=== PATIENT | female | born 1965 | race Caucasian/White ===

== ENCOUNTER 2024-06-02 12:13 | Emergency (ER) | payer OTHER ==
[~2024-06-02] VITALS: Ht 157.5 cm; Wt 54.1 kg
[2024-06-02] MEDS ORDERED: PREDNISONE20 MG PO (13:22)
[2024-06-02] MEDS ORDERED: SODIUM CHLORIDE 0.9% 1,000 ML IV ONE (14:00)
[2024-06-02 14:01] LABS: BASOPHILS 0.6 % (0-2); EOSINOPHILS 1.2 % (0-6); HEMOGLOBIN 11.3 g/dL (12.0-18.0); LYMPHOCYTES 16.2 % (24-44); MCH 27.9 (27-36); MCHC 34.2 g/dl (30-36); MCV 81.7 fl (81-99); MONOCYTES 3.2 % (0-12); NEUTROPHILS 78.8 % (39-80); PLATELET COUNT 140 K/uL (140-440); RBC 4.03 M/ul (4.3-5.7); RDW 21.1 (10.5-15.0)
[2024-06-02] MEDS ORDERED: KETOROLAC TROMETHAMINE 15 MG/ML VIAL IV ONE (14:15)
[2024-06-02 14:25] LABS: ALBUMIN 2.9 g/dL (3.4-5.0); ALBUMIN/GLOBULIN RATIO 0.71 (1.1-2.4); ANION GAP 9.1 (7-21); BILIRUBIN, TOTAL 0.6 ng/dL (0.2-1.0); BUN/CREATININE RATIO 19.23 (6.0-28.6); CALCIUM 8.3 mg/dL (8.5-10.1); CREATININE, SERUM 0.78 mg/dL (0.55-1.02); POTASSIUM 3.1 mmol/L (3.5-5.1)
[2024-06-02 15:44] VITALS: BP 103/78
--- NOTE | 2024-06-03 15:51 | EKG ---
[facility] [address] [facility] [place], [place] [address] Signed Normal sinus rhythm Left axis deviation Minimal voltage criteria for LVH, may be normal variant ( R in aVL ) Inferior infarct , age undetermined Abnormal ECG No previous ECGs available Confirmed by Adam Carlos MD ([id number]) on 06/03/2024 3:50:55 PM Electronically Signed By: ADAM CARLOS MD 06/03/24 1551 PATIENT NAME: ROBINA NGUYEN Electrocardiogram DATE OF : 67 PHYSICIAN: ADAM CARLOS MD REPORT #: [id number] REPORT IS CONFIDENTIAL AND NOT TO BE RELEASED WITHOUT AUTHORIZATION
== END 2024-06-02 15:51 | disposition home or self-care (01) ==
LOC: ED 12:13
PROVIDERS: Emergency Medicine
DX: R53.1 Weakness (principal); Z88.8 Allergy status to other drugs, medicaments and biological substances; Z79.52 Long term (current) use of systemic steroids
CPT/HCPCS: 36415; 71045; 80053; 80307; 84484; 85025; 87502; 93005; 93010; 96374; 99285-25; J1885; J7030; U0002

== ENCOUNTER 2024-08-31 16:14 | Emergency (ER) | payer OTHER ==
[~2024-08-31] VITALS: Ht 157.5 cm; Wt 54.9 kg
[~2024-08-31 16:14] MED LIST: PREDNISONE20 MG PO
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
[2024-08-31] MEDS ORDERED: IBUPROFEN 400 MG TAB PO ONE (18:15)
[2024-08-31 18:38] VITALS: BP 125/84
== END 2024-08-31 18:45 | disposition home or self-care (01) ==
LOC: ED 16:14
DX: F41.9 Anxiety disorder, unspecified (principal); Z88.6 Allergy status to analgesic agent; Z79.52 Long term (current) use of systemic steroids
CPT/HCPCS: 99283; A9270

== ENCOUNTER 2025-03-04 01:33 | Emergency (ER) | payer OTHER ==
[~2025-03-04] VITALS: Ht 157.5 cm; Wt 56.6 kg
--- OUTSIDE RECORDS SUMMARY | 2025-03-04 01:40 | XMS ---
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 E.D. VISIT COUNT (12 MO.) 3 JEYSON Zamorano 2 [place] [address] Bran Tani TOTAL 7 NOTE: Visits indicate total known visits. ED/UCC VISIT TRACKING (12 MO.) 03/04/2025 01:33 JEYSON Wade [place] TYPE: Emergency COMPLAINT: - KNEE PAIN 12/27[facility]2024 10:[facility] DIAGNOSES: - Anemia, unspecified - Embolism and thrombosis of renal vein - Intussusception - Sepsis, unspecified organism - Septic pulmonary embolism without acute cor pulmonale - Severe sepsis without septic shock - Thrombocytopenia, unspecified - Tubulo-interstitial nephritis, not specified as acute or chronic - GI Bleeding 12/27/2024 03:35 [facility] TYPE: Emergency COMPLAINT: - Body Pain DIAGNOSES: - Body Pain 08/31/2024 16:15 JEYSON Cowan TYPE: Emergency COMPLAINT: - PANIC ATTACH DIAGNOSES: - Allergy status to analgesic agent - Anxiety disorder, unspecified - FDC (current) use of systemic steroids 08/22/2024 23:05 Bran [facility] [place] TYPE: Emergency DIAGNOSES: - Contusion of scalp, initial encounter - Unspecified dementia, unspecified severity, without behavioral disturbance, psychotic disturbance, mood disturbance, and anxiety 06/02/2024 12:14 JEYSON [facility] [place] TYPE: Emergency COMPLAINT: - WEAKNESS DIAGNOSES: - Allergy status to other drugs, medicaments and biological substances - Cough, unspecified - terminal clerk (current) use of systemic steroids - Other chest pain - Weakness 04/22/2024 15:45 [facility] [place] TYPE: Emergency COMPLAINT: - stroke DIAGNOSES: - stroke INPATIENT VISIT TRACKING (12 MO.) 12/27/2024 10:46 [facility] DIAGNOSES: - Anemia, unspecified - Bacteremia - Decreased white blood cell count, unspecified - Embolism and thrombosis of renal vein - Encounter for adjustment and management of vascular access device - Encounter for screening, unspecified - Gastrointestinal hemorrhage, unspecified - Generalized anxiety disorder - History of falling - Intussusception - Methicillin susceptible Staphylococcus aureus infection as the cause of diseases classified elsewhere - Other stimulant abuse, uncomplicated - Panic disorder [episodic paroxysmal anxiety] - Polyarthritis, unspecified - Pyogenic arthritis, unspecified - Sepsis due to Methicillin susceptible Staphylococcus aureus - Sepsis, unspecified organism - Septic arterial embolism - Septic pulmonary embolism without acute cor pulmonale - Severe sepsis without septic shock - Staphylococcal arthritis, right knee - Thrombocytopenia, unspecified - Tubulo-interstitial nephritis, not specified as acute or chronic - Unspecified severe protein-calorie malnutrition [email or web address]
[2025-03-04] MEDS ORDERED: LEVOTHYROXINE88 MCG PO (01:46)
[2025-03-04] MEDS ORDERED: HYDROXYZINE PAM25 MG PO (01:46)
[2025-03-04] MEDS ORDERED: PANTOPRAZOLE SO40 MG PO (01:47)
[2025-03-04] MEDS ORDERED: METHOCARBAMOL750 MG PO (01:47)
[2025-03-04] MEDS ORDERED: LIDOCAINE1 EACH TD (01:47)
[2025-03-04] MEDS ORDERED: VENLAFAXINE H37.5 M1 PO (01:48)
[2025-03-04] MEDS ORDERED: QUETIAPINE FUMA50 MG PO (01:48)
[2025-03-04] MEDS ORDERED: PEG3350510 GM PO (01:48)
[2025-03-04] MEDS ORDERED: OXYCODONE HCL 5 MG TAB PO ONE (02:00)
[2025-03-04] MEDS ORDERED: PIPERACILLIN/TAZOBACTAM 4.5 GM in SODIUM CHLORIDE 0.9% 100 ML IV ONE (02:00)
[2025-03-04 02:02] LABS: BASOPHILS 0.3 % (0.1-1.2); EOSINOPHILS 1.6 % (0.7-5.8); LYMPHOCYTES 17.2 % (19.3-51.7); MCH 26.2 PG (25.6-32.2); MCHC 32.2 g/dL (32.2-35.5); MCV 81.6 fL (79.4-94.8); MONOCYTES 6.3 % (4.7-12.5); NEUTROPHILS 74.3 % (34.0-71.1); RBC 3.81 M/uL (3.93-5.22)
[2025-03-04 02:06] LABS: INR 1.15 (0.80-1.30); PROTIME 14.3 Sec (11.2-14.2)
[2025-03-04 02:11] LABS: ALT (SGPT) 7.0 U/L (14-59); AST (SGOT) 13.0 U/L (15-37); GLOMERULAR FILTRATION RATE,EST 75.0 mL/min (>60); PROTEIN, TOTAL 8.1 g/dL (6.4-8.2); UREA NITROGEN 13.0 mg/dL (7-18)
[2025-03-04 02:15] LABS: SMEAR REVIEW BLOOD SEE COMMENTS
[2025-03-04 02:31] LABS: BLOOD/HGB, URINE SMALL (Negative); KETONE, URINE NEGATIVE (Negative); LEUK ESTERASE, URINE SMALL (negative); NITRITE, URINE POSITIVE (negative)
[2025-03-04 02:33] LABS: LACTIC ACID, BLOOD 1.1 mmol/L (0.4-2.0)
[2025-03-04 02:42] LABS: BACTERIA, URINE 4+ /hpf (negative); CASTS, URINE NONE SEEN \\lpf; CRYSTALS, URINE NONE SEEN (0-1+); EPITHELIAL CELLS, URINE SQUAMOUS 1+ /lpf (0-1+); REFLEX CULTURE, URINE Yes (No)
[2025-03-04 02:55] LABS: AMPHETAMINES, URINE NEGATIVE (NEGATIVE); BARBITURATES, URINE NEGATIVE (NEGATIVE); BENZODIAZEPINE, URINE NEGATIVE (NEGATIVE); CANNABINOID, URINE NEGATIVE (NEGATIVE); COCAINE, URINE NEGATIVE (NEGATIVE); ECSTASY, URINE NEGATIVE (NEGATIVE); METHADONE, URINE NEGATIVE (NEGATIVE); OPIATES, URINE NEGATIVE (NEGATIVE); OXYCODONE, URINE NEGATIVE (NEGATIVE); PHENCYCLIDINE, URINE NEGATIVE (NEGATIVE)
[2025-03-04 03:13] LABS: ABO O; ANTIBODY SCREEN NEGATIVE; RH POSITIVE
[2025-03-04] MEDS ORDERED: CEPHALEXIN500 M1 PO (03:36)
[2025-03-04] MEDS ORDERED: OXYBUTYNIN CHLOR5 MG PO (03:40)
[2025-03-04] MEDS ORDERED: OXYCODONE HCL5 M1 PO (03:42)
[2025-03-04] MEDS ORDERED: CEPHALEXIN MONOHYDRATE 500 MG HOME.PACK PO ONE (03:45)
[2025-03-04 04:12] LABS: FENTANYL, URINE NEGATIVE (NEGATIVE)
[2025-03-04 04:13] VITALS: BP 132/80
== END 2025-03-04 04:16 | disposition home or self-care (01) ==
LOC: ED 01:33
PROVIDERS: Internal Medicine
DX: L03.115 Cellulitis of right lower limb (principal); N39.0 Urinary tract infection, site not specified; M25.531 Pain in right wrist; M25.532 Pain in left wrist; Z88.1 Allergy status to other antibiotic agents; Z79.890 Hormone replacement therapy; Z79.899 Other long term (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
CPT/HCPCS: 36415; 51701; 73560; 80053; 80307; 81001; 83605; 84550; 85025; 85060; 85610; 85651; 85730; 86140; 86850; 86900; 86901; 87040; 87077; 87088; 87186; 99283-25; A9270; G0480; J0696

== ENCOUNTER 2025-03-10 20:53 | Emergency (ER) | payer OTHER ==
[~2025-03-10] VITALS: Ht 157.5 cm; Wt 58.0 kg
[~2025-03-10 20:53] MED LIST changes: +CEPHALEXIN500 M1 PO; +HYDROXYZINE PAM25 MG PO; +LEVOTHYROXINE88 MCG PO; +LIDOCAINE1 EACH TD; +METHOCARBAMOL750 MG PO; +OXYBUTYNIN CHLOR5 MG PO; +OXYCODONE HCL5 M1 PO; +PANTOPRAZOLE SO40 MG PO; +PEG3350510 GM PO; +QUETIAPINE FUMA50 MG PO; +VENLAFAXINE H37.5 M1 PO
--- OUTSIDE RECORDS SUMMARY | 2025-03-10 20:59 | XMS ---
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 - 2 Visits in 30 Days - [facility] - 3 Facilities in 90 Days CARE PROVIDERS MARKUS FONTANA Community Health Worker 11/25/2023-Current PHONE: [phone] JOSÉ CAMACHO Physician Assistant Georgina Schilling PHONE: Unknown [facility]/Center: [facility] WORKERS CLINIC [facility] ([facility]) <UNAVAIL> PHONE: [phone] Sg has no Care Guidelines for this patient. E.D. VISIT COUNT (12 MO.) 4 JEYSON Zamorano 2 [place] [address] Bran Tani TOTAL 8 NOTE: Visits indicate total known visits. ED/UCC VISIT TRACKING (12 MO.) 03/10/2025 20:53 JEYSON Wade [place] TYPE: Emergency COMPLAINT: - CHEST PAIN 03/04/2025 01:33 JEYSON Wade [place] TYPE: Emergency COMPLAINT: - KNEE PAIN DIAGNOSES: - Allergy status to other antibiotic agents - Cellulitis of right lower limb - Hormone replacement therapy - Other half-way (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 - Pain in left wrist - Pain in right knee - Pain in right wrist - Urinary tract infection, site not specified 12/27/2024 10:46 [facility] TYPE: Emergency DIAGNOSES: - Anemia, unspecified - Embolism and thrombosis of renal vein - Intussusception - Sepsis, unspecified organism - Septic pulmonary embolism without acute cor pulmonale - Severe sepsis without septic shock - Thrombocytopenia, unspecified - Tubulo-interstitial nephritis, not specified as acute or chronic - GI Bleeding 12/27/2024 03:35 [facility] [place] TYPE: Emergency COMPLAINT: - Body Pain DIAGNOSES: - Body Pain 08/31/2024 16:15 JEYSON Wade [place] TYPE: Emergency COMPLAINT: - PANIC ATTACH DIAGNOSES: - Allergy status to analgesic agent - Anxiety disorder, unspecified - FPC (current) use of systemic steroids 08/22/2024 23:05 [facility] TYPE: Emergency DIAGNOSES: - Contusion of scalp, initial encounter - Unspecified dementia, unspecified severity, without behavioral disturbance, psychotic disturbance, mood disturbance, and anxiety 06/02/2024 12:14 JEYSON [facility]an TYPE: Emergency COMPLAINT: - WEAKNESS DIAGNOSES: - Allergy status to other drugs, medicaments and biological substances - Cough, unspecified - FPC (current) use of systemic steroids - Other chest pain - Weakness 04/22/2024 15:45 [facility] [place] TYPE: Emergency COMPLAINT: - stroke DIAGNOSES: - stroke INPATIENT VISIT TRACKING (12 MO.) 12/27/2024 10:46 [facility] TYPE: Internal Medicine DIAGNOSES: - Anemia, unspecified [...] or chronic - Unspecified severe protein-calorie malnutrition [email or web address]
[2025-03-10 21:12] LABS: BASOPHILS 0.4 % (0.1-1.2); EOSINOPHILS 3.3 % (0.7-5.8); LYMPHOCYTES 22.2 % (19.3-51.7); MCH 25.8 PG (25.6-32.2); MCHC 32.0 g/dL (32.2-35.5); MCV 80.9 fL (79.4-94.8); MONOCYTES 9.6 % (4.7-12.5); NEUTROPHILS 64.1 % (34.0-71.1); RBC 3.29 M/uL (3.93-5.22)
[2025-03-10 21:26] LABS: INR 1.2 (0.80-1.30); PROTIME 14.4 Sec (11.2-14.2); SMEAR REVIEW BLOOD SEE COMMENTS
[2025-03-10 21:31] LABS: ALT (SGPT) 6.0 U/L (14-59); AST (SGOT) 14.0 U/L (15-37); GLOMERULAR FILTRATION RATE,EST 82.0 mL/min (>60); PROTEIN, TOTAL 7.5 g/dL (6.4-8.2); UREA NITROGEN 14.0 mg/dL (7-18)
[2025-03-10 22:32] LABS: BLOOD/HGB, URINE NEGATIVE (Negative); KETONE, URINE NEGATIVE (Negative); LEUK ESTERASE, URINE NEGATIVE (negative); NITRITE, URINE NEGATIVE (negative)
[2025-03-10 22:37] LABS: EPITHELIAL CELLS, URINE SQUAMOUS 1+ /lpf (0-1+)
[2025-03-10 22:38] LABS: BACTERIA, URINE RARE /hpf (negative); CASTS, URINE HYALINE 1+ \\lpf; CRYSTALS, URINE NONE SEEN (0-1+); REFLEX CULTURE, URINE No (No)
[2025-03-10 22:47] LABS: AMPHETAMINES, URINE NEGATIVE (NEGATIVE); BARBITURATES, URINE NEGATIVE (NEGATIVE); BENZODIAZEPINE, URINE NEGATIVE (NEGATIVE); CANNABINOID, URINE NEGATIVE (NEGATIVE); COCAINE, URINE NEGATIVE (NEGATIVE); ECSTASY, URINE NEGATIVE (NEGATIVE); FENTANYL, URINE NEGATIVE (NEGATIVE); METHADONE, URINE NEGATIVE (NEGATIVE); OPIATES, URINE POSITIVE (NEGATIVE); OXYCODONE, URINE POSITIVE (NEGATIVE); PHENCYCLIDINE, URINE NEGATIVE (NEGATIVE)
[2025-03-10] MEDS ORDERED: CYCLOBENZAPRINE10 MG PO (23:00)
[2025-03-10] MEDS ORDERED: AZITHROMYCIN 250 MG HOME.PACK PO ONE (23:00)
[2025-03-10] MEDS ORDERED: ALBUTEROL SULFATE 8 GM HOME.PACK INH ONE (23:00)
[2025-03-10] MEDS ORDERED: CYCLOBENZAPRINE HCL 10 MG HOME.PACK PO ONE (23:00)
[2025-03-10 23:10] VITALS: BP 120/74
--- NOTE | 2025-03-11 11:38 | EKG ---
[facility] [address] [facility] [place] [address] Signed Normal sinus rhythm Normal ECG When compared with ECG of 02-Jun-2024 14:15:08 Left axis deviation is no longer present Confirmed by Adam Carlos MD ([id number]) on 03/11/2025 11:38:29 AM Electronically Signed By: ADAM CARLOS MD 03/11/25 1138 PATIENT NAME: ROBINA NGUYEN Electrocardiogram DATE OF : 67 PHYSICIAN: ADAM CARLOS MD REPORT #: [id number] REPORT IS CONFIDENTIAL AND NOT TO BE RELEASED WITHOUT AUTHORIZATION
== END 2025-03-10 23:39 | disposition home or self-care (01) ==
LOC: ED 20:53
PROVIDERS: Family Medicine
DX: J18.9 Pneumonia, unspecified organism (principal); Z88.1 Allergy status to other antibiotic agents; Z79.2 Long term (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; Z79.890 Hormone replacement therapy; Z79.899 Other long term (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
CPT/HCPCS: 36415; 51701; 71045; 71260; 80053; 80307; 81001; 83735; 84484; 85025; 85060; 85379; 85610; 93005; 93010; 94640; 94664; 99285-25; Q9967

== ENCOUNTER 2025-03-11 20:18 | Emergency (ER) | payer OTHER ==
[~2025-03-11] VITALS: Ht 157.5 cm; Wt 58.0 kg
[~2025-03-11 20:18] MED LIST changes: +CYCLOBENZAPRINE10 MG PO
--- OUTSIDE RECORDS SUMMARY | 2025-03-11 20:25 | XMS ---
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 E.D. VISIT COUNT (12 MO.) 5 JEYSON Zamorano 2 [place] [address] Bran Tani TOTAL 9 NOTE: Visits indicate total known visits. ED/UCC VISIT TRACKING (12 MO.) 03/11/2025 20:18 JEYSON Wade [place] TYPE: Emergency COMPLAINT: - ANXIETY 03/10/2025 20:53 JEYSON Wade [place] TYPE: Emergency COMPLAINT: - CHEST PAIN 03/04/2025 01:33 JEYSON Wade [place] TYPE: Emergency COMPLAINT: - KNEE PAIN DIAGNOSES: - Allergy status to other antibiotic agents - Cellulitis of right lower limb - Hormone replacement therapy - Other care home (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 - Pain in left wrist - Pain in right knee - Pain in right wrist - Urinary tract infection, site not specified 12/27/2024 10:46 [facility] TYPE: Emergency DIAGNOSES: - Anemia, unspecified - Embolism and thrombosis of renal vein - Intussusception - Sepsis, unspecified organism - Septic pulmonary embolism without acute cor pulmonale - Severe sepsis without septic shock - Thrombocytopenia, unspecified - Tubulo-interstitial nephritis, not specified as acute or chronic - GI Bleeding 12/27/2024 03:35 [facility] [place] TYPE: Emergency COMPLAINT: - Body Pain DIAGNOSES: - Body Pain 08/31/2024 16:15 JEYSON Cowan TYPE: Emergency COMPLAINT: - PANIC ATTACH DIAGNOSES: - Allergy status to analgesic agent - Anxiety disorder, unspecified - intermission coordinator (current) use of systemic steroids 08/22/2024 23:05 [facility] TYPE: Emergency DIAGNOSES: - Contusion of scalp, initial encounter - Unspecified dementia, unspecified severity, without behavioral disturbance, psychotic disturbance, mood disturbance, and anxiety 06/02/2024 12:14 JEYSON [facility] TYPE: Emergency COMPLAINT: - WEAKNESS DIAGNOSES: - Allergy status to other drugs, medicaments and biological substances - Cough, unspecified - intermission coordinator (current) use of systemic steroids - Other chest pain - Weakness 04/22/2024 15:45 [facility] [place] TYPE: Emergency COMPLAINT: - stroke DIAGNOSES: - stroke INPATIENT VISIT TRACKING (12 MO.) 12/27/2024 10:46 [facility] TYPE: Internal Medicine DIAGNOSES: - Anemia, unspecified [...] or chronic - Unspecified severe protein-calorie malnutrition [email or web address]
[2025-03-11] MEDS ORDERED: LORazepam 2 MG/ML VIAL IV ONE (20:45)
[2025-03-11 21:40] LABS: BASOPHILS 0.3 % (0.1-1.2); EOSINOPHILS 1.1 % (0.7-5.8); LYMPHOCYTES 15.2 % (19.3-51.7); MCH 26.1 PG (25.6-32.2); MCHC 32.6 g/dL (32.2-35.5); MCV 79.9 fL (79.4-94.8); MONOCYTES 8.3 % (4.7-12.5); NEUTROPHILS 74.8 % (34.0-71.1); RBC 3.49 M/uL (3.93-5.22)
[2025-03-11 21:54] LABS: SMEAR REVIEW BLOOD SEE COMMENTS
[2025-03-11 21:56] LABS: ALT (SGPT) 6.0 U/L (14-59); AST (SGOT) 16.0 U/L (15-37); GLOMERULAR FILTRATION RATE,EST 82.0 mL/min (>60); PROTEIN, TOTAL 7.5 g/dL (6.4-8.2); UREA NITROGEN 13.0 mg/dL (7-18)
[2025-03-11] MEDS ORDERED: POTASSIUM CHLORIDE 10 MEQ TABCR PO ONE (22:30)
[2025-03-11 22:49] VITALS: BP 124/87
--- NOTE | 2025-03-14 07:58 | EKG ---
[facility] [address] [facility] [place], [place] [address] Signed Normal sinus rhythm Minimal voltage criteria for LVH, may be normal variant ( R in aVL ) Borderline ECG When compared with ECG of 10-MAR-2025 20:51, No significant change was found Confirmed by Adam Carlos MD ([id number]) on 03/14/2025 7:58:19 AM Electronically Signed By: ADAM CARLOS MD 03/14/25 0758 PATIENT NAME: ELDA NGUYENINA Electrocardiogram DATE OF : 67 PHYSICIAN: ADAM CARLOS MD REPORT #: [id number] REPORT IS CONFIDENTIAL AND NOT TO BE RELEASED WITHOUT AUTHORIZATION
== END 2025-03-11 23:01 | disposition home or self-care (01) ==
LOC: ED 20:18
PROVIDERS: Family Medicine
DX: F41.9 Anxiety disorder, unspecified (principal); D69.6 Thrombocytopenia, unspecified; Z63.8 Other specified problems related to primary support group; Z79.899 Other long term (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; Z88.5 Allergy status to narcotic agent
CPT/HCPCS: 36415; 71045; 80053; 83735; 84484; 85025; 85060; 93005; 93010; 96374; 99284-25; A9270; J2060

== ENCOUNTER 2025-03-28 00:45 | Emergency (ER) | payer OTHER ==
[~2025-03-28] VITALS: Ht 157.5 cm; Wt 52.5 kg
--- OUTSIDE RECORDS SUMMARY | 2025-03-28 00:47 | XMS ---
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 Qualified [facility] Current WORKERS CLINIC [facility] ([facility]) <UNAVAIL> PHONE: [phone] Sg has no Care Guidelines for this patient. E.D. VISIT COUNT (12 MO.) 6 JEYSON Zamorano 2 [place] [address] Bran Tani TOTAL 10 NOTE: Visits indicate total known visits. ED/UCC VISIT TRACKING (12 MO.) 03/28/2025 00:45 JEYSON Wade [place] TYPE: Emergency COMPLAINT: - WEAKNESS 03/11/2025 20:18 JEYSON Wade [place] TYPE: Emergency COMPLAINT: - ANXIETY DIAGNOSES: - Allergy status to narcotic agent - Anxiety disorder, unspecified - Chest pain, unspecified - Other retirement (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 - Other specified problems related to primary support group - Thrombocytopenia, unspecified 03/10/2025 20:53 JEYSON Wade [place] TYPE: Emergency COMPLAINT: - CHEST PAIN DIAGNOSES: - Allergy status to other antibiotic agents - Chest pain, unspecified - Hormone replacement therapy - computer terminal operator (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 - Other termite inspector (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 - Pneumonia, unspecified organism 03/04/2025 01:33 JEYSON Wade [place] TYPE: Emergency COMPLAINT: - KNEE PAIN DIAGNOSES: - Allergy status to other antibiotic agents - Cellulitis of right lower limb - Hormone replacement therapy - Other retirement (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 - Pain in left wrist - Pain in right knee - Pain in right wrist - Urinary tract infection, site not specified 12/27/2024 10:46 [facility] TYPE: Emergency DIAGNOSES: - Anemia, unspecified - Embolism and thrombosis of renal vein - Intussusception - Sepsis, unspecified organism - Septic pulmonary embolism without acute cor pulmonale - Severe sepsis without septic shock - Thrombocytopenia, unspecified - Tubulo-interstitial nephritis, not specified as acute or chronic - GI Bleeding 12/27/2024 03:35 [facility] TYPE: Emergency COMPLAINT: - Body Pain DIAGNOSES: - Body Pain 08/31/2024 16:15 JEYSON Cowan TYPE: Emergency COMPLAINT: - PANIC ATTACH DIAGNOSES: - Allergy status to analgesic agent - Anxiety disorder, unspecified - computer terminal operator (current) use of systemic steroids 08/22/2024 23:05 [facility] TYPE: Emergency DIAGNOSES: - Contusion of scalp, initial encounter - Unspecified dementia, unspecified severity, without behavioral disturbance, psychotic disturbance, mood disturbance, and anxiety 06/02/2024 12:14 JEYSON Wade [place] TYPE: Emergency COMPLAINT: - WEAKNESS DIAGNOSES: - Allergy status to other drugs, medicaments and biological substances - Cough, unspecified - computer terminal operator (current) use of systemic steroids - Other chest pain - Weakness 04/22/2024 15:45 [facility] [place] TYPE: Emergency COMPLAINT: - stroke DIAGNOSES: - stroke INPATIENT VISIT TRACKING (12 MO.) 12/27/2024 10:46 [facility] TYPE: Internal Medicine DIAGNOSES: - [...] or chronic - Unspecified severe protein-calorie malnutrition [email or web address]
[2025-03-28] MEDS ORDERED: SODIUM CHLORIDE 0.9% 1,000 ML IV ONE (01:15)
[2025-03-28] MEDS ORDERED: IBUPROFEN 600 MG TAB PO ONE (01:15)
[2025-03-28 01:18] LABS: BASOPHILS 0.4 % (0.1-1.2); EOSINOPHILS 2.3 % (0.7-5.8); LYMPHOCYTES 21.5 % (19.3-51.7); MCH 25.1 PG (25.6-32.2); MCHC 32.3 g/dL (32.2-35.5); MCV 77.6 fL (79.4-94.8); MONOCYTES 7.3 % (4.7-12.5); NEUTROPHILS 68.1 % (34.0-71.1); RBC 4.19 M/uL (3.93-5.22)
[2025-03-28 01:22] LABS: INR 1.08 (0.80-1.30); PROTIME 13.6 Sec (11.2-14.2)
[2025-03-28 01:26] LABS: ALT (SGPT) 11.0 U/L (14-59); AST (SGOT) 18.0 U/L (15-37); GLOMERULAR FILTRATION RATE,EST 101.0 mL/min (>60); PROTEIN, TOTAL 8.6 g/dL (6.4-8.2); UREA NITROGEN 14.0 mg/dL (7-18)
[2025-03-28 01:39] LABS: LACTIC ACID, BLOOD 0.9 mmol/L (0.4-2.0)
[2025-03-28 02:05] LABS: INFLUENZA B NAA NEGATIVE (NEGATIVE); RESPIRATORY SYNCYTIAL VIR NAA NEGATIVE (NEGATIVE)
[2025-03-28] MEDS ORDERED: SODIUM CHLORIDE 0.9% 1,000 ML IV PRN (02:45)
[2025-03-28 02:48] LABS: BLOOD/HGB, URINE NEGATIVE (Negative); KETONE, URINE NEGATIVE (Negative); LEUK ESTERASE, URINE NEGATIVE (negative); NITRITE, URINE NEGATIVE (negative)
[2025-03-28 03:03] LABS: AMPHETAMINES, URINE NEGATIVE (NEGATIVE); BARBITURATES, URINE NEGATIVE (NEGATIVE); BENZODIAZEPINE, URINE NEGATIVE (NEGATIVE); CANNABINOID, URINE NEGATIVE (NEGATIVE); COCAINE, URINE NEGATIVE (NEGATIVE); ECSTASY, URINE NEGATIVE (NEGATIVE); FENTANYL, URINE NEGATIVE (NEGATIVE); METHADONE, URINE NEGATIVE (NEGATIVE); OPIATES, URINE NEGATIVE (NEGATIVE); OXYCODONE, URINE POSITIVE (NEGATIVE); PHENCYCLIDINE, URINE NEGATIVE (NEGATIVE)
[2025-03-28] MEDS ORDERED: ALBUTEROL SULFATE 8 GM HOME.PACK INH ONE (04:15)
[2025-03-28] MEDS ORDERED: AZITHROMYCIN 250 MG HOME.PACK PO ONE (04:15)
[2025-03-28] MEDS ORDERED: methylPREDNISolone 4 MG HOME.PACK PO ONE (04:15)
[2025-03-28 04:42] VITALS: BP 109/75
--- NOTE | 2025-03-28 15:59 | EKG ---
[facility] [address] [facility] [place] [address] Signed Normal sinus rhythm Moderate voltage criteria for LVH, may be normal variant ( R in aVL , [place] product ) Inferior infarct , age undetermined Abnormal ECG When compared with ECG of 11-MAR-2025 21:01, No significant change was found Confirmed by Bowen Carlos MD ([id number]) on 03/28/2025 3:59:14 PM Electronically Signed By: BOWEN CARLOS MD 03/28/25 1559 PATIENT NAME: PATRICKROBINA Electrocardiogram DATE OF : 67 PHYSICIAN: BOWEN CARLOS MD REPORT #: [id number] REPORT IS CONFIDENTIAL AND NOT TO BE RELEASED WITHOUT AUTHORIZATION
== END 2025-03-28 04:55 | disposition home or self-care (01) ==
LOC: ED 00:45
PROVIDERS: Family Medicine
DX: J18.9 Pneumonia, unspecified organism (principal); Z88.8 Allergy status to other drugs, medicaments and biological substances; Z79.2 Long term (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
CPT/HCPCS: 36415; 51702; 70450; 71045; 80053; 80307; 81003; 83605; 85025; 85610; 85730; 87502; 93005; 93010; 94640; 94664; 96361; 96365; 96375; 96376; 99285-25; A9270; J0696; J2405; J7030; U0002

== ENCOUNTER 2025-04-05 19:15 | Emergency (ER) | payer OTHER ==
[~2025-04-05] VITALS: Ht 157.5 cm; Wt 53.5 kg
--- OUTSIDE RECORDS SUMMARY | 2025-04-05 19:22 | XMS ---
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 E.D. VISIT COUNT (12 MO.) 7 JEYSON Zamorano 2 [place] [address] Bran Tani TOTAL 11 NOTE: Visits indicate total known visits. 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 plant operator (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 - Other specified problems related to primary support group - Thrombocytopenia, unspecified 03/10/2025 20:53 [facility] [place] TYPE: Emergency COMPLAINT: - CHEST PAIN DIAGNOSES: - Allergy status to other antibiotic agents - Chest pain, unspecified - Hormone replacement therapy - roasterman (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 - Other petroleum terminal plant operator (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 - Pneumonia, unspecified organism 03/04/2025 01:33 JEYSON Wade [place] TYPE: Emergency COMPLAINT: - KNEE PAIN DIAGNOSES: - Allergy status to other antibiotic agents - Cellulitis of right lower limb - Hormone replacement therapy - Other fpc (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 - Pain in left wrist - Pain in right knee - Pain in right wrist - Urinary tract infection, site not specified 12/27/2024 10:46 [facility] TYPE: Emergency DIAGNOSES: - Anemia, unspecified - Embolism and thrombosis of renal vein - Intussusception - Sepsis, unspecified organism - Septic pulmonary embolism without acute cor pulmonale - Severe sepsis without septic shock - Thrombocytopenia, unspecified - Tubulo-interstitial nephritis, not specified as acute or chronic - GI Bleeding 12/27/2024 03:35 [facility] [place] TYPE: Emergency COMPLAINT: - Body Pain DIAGNOSES: - Body Pain 08/31/2024 16:15 JEYSON [facility] [place] TYPE: Emergency COMPLAINT: - PANIC ATTACH DIAGNOSES: - Allergy status to analgesic agent - Anxiety disorder, unspecified - long-term (current) use of systemic steroids 08/22/2024 23:05 [facility] TYPE: Emergency DIAGNOSES: - Contusion of scalp, initial encounter - Unspecified dementia, unspecified severity, without behavioral disturbance, psychotic disturbance, mood disturbance, and anxiety 06/02/2024 12:14 JEYSON [facility] TYPE: Emergency COMPLAINT: - WEAKNESS DIAGNOSES: - Allergy status to other drugs, medicaments and biological substances - Cough, unspecified - long-term (current) use of systemic steroids - Other chest pain - Weakness 04/22/2024 15:45 [facility] [place] TYPE: Emergency COMPLAINT: - stroke DIAGNOSES: - stroke INPATIENT VISIT TRACKING (12 MO.) [facility]2024 10:[facility] DIAGNOSES: - Anemia, [...] or chronic - Unspecified severe protein-calorie malnutrition [email or web address]
[2025-04-05] MEDS ORDERED: LIDOCAINE & ANTACID 35 ML BTL PO ONE (20:00)
[2025-04-05] MEDS ORDERED: FAMOTIDINE 20 MG/ 2 ML VIAL IV ONE (20:00)
[2025-04-05] MEDS ORDERED: ASPIRIN 81 MG CHEW PO ONE (20:00)
[2025-04-05 20:27] LABS: BASOPHILS 0.3 % (0.1-1.2); EOSINOPHILS 1.7 % (0.7-5.8); LYMPHOCYTES 14.1 % (19.3-51.7); MCH 25.0 PG (25.6-32.2); MCHC 32.0 g/dL (32.2-35.5); MCV 78.1 fL (79.4-94.8); MONOCYTES 6.9 % (4.7-12.5); NEUTROPHILS 76.7 % (34.0-71.1); RBC 3.88 M/uL (3.93-5.22)
[2025-04-05 20:47] LABS: ALT (SGPT) 17.0 U/L (14-59); AST (SGOT) 19.0 U/L (15-37); GLOMERULAR FILTRATION RATE,EST 89.0 mL/min (>60); PROTEIN, TOTAL 7.2 g/dL (6.4-8.2); UREA NITROGEN 16.0 mg/dL (7-18)
[2025-04-05] MEDS ORDERED: PROTONIX40 MG PO (21:03)
[2025-04-05] MEDS ORDERED: CARAFATE1 GM PO (21:03)
[2025-04-05 21:20] VITALS: BP 129/85
--- NOTE | 2025-04-07 21:36 | EKG ---
[facility] [address] [facility] [place] [address] Signed Normal sinus rhythm Possible Left atrial enlargement Nonspecific T wave abnormality Abnormal ECG When compared with ECG of 28-MAR-2025 01:13, Criteria for Inferior infarct are no longer present Nonspecific T wave abnormality now evident in Lateral leads Confirmed by Swapnil Chaudhry MD () on 04/07/2025 9:36:38 PM Electronically Signed By: SWAPNIL CHAUDHRY MD 04/07/25 2136 PATIENT NAME: ROBINA NGUYEN Electrocardiogram DATE OF : 67 PHYSICIAN: SWAPNIL CHAUDHRY MD REPORT #: [id number] REPORT IS CONFIDENTIAL AND NOT TO BE RELEASED WITHOUT AUTHORIZATION
== END 2025-04-05 21:20 | disposition home or self-care (01) ==
LOC: ED 19:15
PROVIDERS: Internal Medicine
DX: K21.9 Gastro-esophageal reflux disease without esophagitis (principal); D61.818 Other pancytopenia; Z88.6 Allergy status to analgesic agent; Z88.8 Allergy status to other drugs, medicaments and biological substances; Z79.890 Hormone replacement therapy; Z79.899 Other long term (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
CPT/HCPCS: 36415; 71045; 80053; 80307; 83690; 83735; 83880; 84484; 85025; 85379; 93005; 93010; 96374; 99285-25; A9270

== ENCOUNTER 2025-04-23 00:56 | Emergency (ER) | payer OTHER ==
[~2025-04-23] VITALS: Ht 157.5 cm; Wt 51.3 kg
[~2025-04-23 00:56] MED LIST changes: +CARAFATE1 GM PO; +PROTONIX40 MG PO
--- OUTSIDE RECORDS SUMMARY | 2025-04-23 01:03 | XMS ---
PreManage Notification: ROBINA NGUYEN Security Photography Spotter Events No recent Security Events currently on file CRITERIA MET - 6 ED Visits in 6 Months - [facility] - 2 Visits in 30 Days CARE PROVIDERS MARKUS FONTANA Community Health Worker 11/25/2023-Current PHONE: [phone] JOSÉ CAMACHO Physician Assistant Georgina Schilling PHONE: Unknown [facility]/Center: [facility] Qualified [place] Current WORKERS CLINIC [facility] ([facility]) <UNAVAIL> PHONE: [phone] Sg has no Care Guidelines for this patient. E.D. VISIT COUNT (12 MO.) 8 JEYSON Logan [place] [address] Bran Tani TOTAL 11 NOTE: Visits indicate total known visits. ED/UCC VISIT TRACKING (12 MO.) 04/23/2025 00:56 [place] TYPE: Emergency COMPLAINT: - POSS FEVER 04/05/2025 19:15 JEYSON CazaresNuangola HPushpa [facility] [place] TYPE: Emergency COMPLAINT: - CHEST PAIN DIAGNOSES: - Allergy status to analgesic agent - Allergy status to other drugs, medicaments and biological substances - Chest pain, unspecified - Gastro-esophageal reflux disease without esophagitis - Hormone replacement therapy - Other penitentiary (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 - Other pancytopenia 03/28/2025 00:45 JEYSON [place] TYPE: Emergency COMPLAINT: - WEAKNESS DIAGNOSES: - Allergy status to other drugs, medicaments and biological substances - [facility] (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 - Pneumonia, unspecified organism - Weakness 03/11/2025 20:18 JEYSON Jonkaitlynn LemusPushpa [facility]re[place] TYPE: Emergency COMPLAINT: - ANXIETY DIAGNOSES: - Allergy status to narcotic agent - Anxiety disorder, unspecified - Chest pain, unspecified - Other hvac service tech (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 - Other specified problems related to primary support group - Thrombocytopenia, unspecified 03/10/2025 20:53 JEYS[place] TYPE: Emergency COMPLAINT: - CHEST PAIN DIAGNOSES: - Allergy status to other antibiotic agents - Chest pain, unspecified - Hormone replacement therapy - [facility] (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 - Other hvac service tech (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 - Pneumonia, unspecified organism 03/04/2025 01:33 JE[place] TYPE: Emergency COMPLAINT: - KNEE PAIN DIAGNOSES: - Allergy status to other antibiotic agents - Cellulitis of right lower limb - Hormone replacement therapy - Other hvac service tech (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 - Pain in left wrist - Pain in right knee - Pain in right wrist - Urinary tract infection, site not specified 12/27/2024 10:46 [facility] TYPE: Emergency DIAGNOSES: - Anemia, unspecified - Embolism and thrombosis of renal vein - Intussusception - Sepsis, unspecified organism - Septic pulmonary embolism without acute cor pulmonale - Severe sepsis without septic shock - Thrombocytopenia, unspecified - Tubulo-interstitial nephritis, not specified as acute or chronic - GI Bleeding 12/27/2024 03:35 [facility] [place] TYPE: Emergency COMPLAINT: - Body Pain DIAGNOSES: - Body Pain 08/31/2024 16:15 JEYSON Cowan TYPE: Emergency COMPLAINT: - PANIC ATTACH DIAGNOSES: - Allergy status to analgesic agent - Anxiety disorder, unspecified - [facility] (current) use of systemic steroids 08/22/2024 23:05 [facility] TYPE: Emergency DIAGNOSES: - Contusion of scalp, initial encounter - Unspecified dementia, unspecified severity, without behavioral disturbance, psychotic disturbance, mood disturbance, and anxiety 06/02/2024 12:14 JEYSON Cowan TYPE: Emergency COMPLAINT: - WEAKNESS DIAGNOSES: - Allergy status to other drugs, medicaments and biological substances - Cough, unspecified - talent acquisition associate (current) 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
[2025-04-23] MEDS ORDERED: LACTATED RINGER'S 1,000 ML IV ONE (01:15)
[2025-04-23 01:26] LABS: BASOPHILS 0.3 % (0.1-1.2); EOSINOPHILS 1.3 % (0.7-5.8); LYMPHOCYTES 18.2 % (19.3-51.7); MCH 24.6 PG (25.6-32.2); MCHC 32.3 g/dL (32.2-35.5); MCV 76.1 fL (79.4-94.8); MONOCYTES 5.3 % (4.7-12.5); NEUTROPHILS 74.6 % (34.0-71.1); RBC 4.27 M/uL (3.93-5.22)
[2025-04-23 01:40] LABS: ALT (SGPT) 6.0 U/L (14-59); AST (SGOT) 14.0 U/L (15-37); GLOMERULAR FILTRATION RATE,EST 87.0 mL/min (>60); PROTEIN, TOTAL 7.8 g/dL (6.4-8.2); UREA NITROGEN 10.0 mg/dL (7-18)
[2025-04-23] MEDS ORDERED: POTASSIUM CHLORIDE 10 MEQ TABCR PO ONE ×2 (01:45→03:15)
[2025-04-23] MEDS ORDERED: REMERON15 MG PO (02:05)
[2025-04-23 02:07] LABS: BLOOD/HGB, URINE TRACE-L (Negative); KETONE, URINE NEGATIVE (Negative); LEUK ESTERASE, URINE NEGATIVE (negative); NITRITE, URINE NEGATIVE (negative)
[2025-04-23 02:12] LABS: EPITHELIAL CELLS, URINE SQUAMOUS 1+ /lpf (0-1+)
[2025-04-23 02:13] LABS: BACTERIA, URINE RARE /hpf (negative); CASTS, URINE NONE SEEN \\lpf; CRYSTALS, URINE NONE SEEN (0-1+); REFLEX CULTURE, URINE No (No)
[2025-04-23] MEDS ORDERED: MAGNESIUM OXIDE 400 MG TABLET PO ONE (02:15)
[2025-04-23 02:22] LABS: AMPHETAMINES, URINE NEGATIVE (NEGATIVE); BARBITURATES, URINE NEGATIVE (NEGATIVE); BENZODIAZEPINE, URINE NEGATIVE (NEGATIVE); CANNABINOID, URINE NEGATIVE (NEGATIVE); COCAINE, URINE NEGATIVE (NEGATIVE); ECSTASY, URINE NEGATIVE (NEGATIVE); FENTANYL, URINE NEGATIVE (NEGATIVE); METHADONE, URINE NEGATIVE (NEGATIVE); OPIATES, URINE NEGATIVE (NEGATIVE); OXYCODONE, URINE NEGATIVE (NEGATIVE); PHENCYCLIDINE, URINE NEGATIVE (NEGATIVE)
[2025-04-23] MEDS ORDERED: KLOR-CON M2020 MEQ PO (03:18)
[2025-04-23 03:30] VITALS: BP 158/89
== END 2025-04-23 03:32 | disposition home or self-care (01) ==
LOC: ED 00:56
PROVIDERS: Internal Medicine
DX: E87.6 Hypokalemia (principal); F41.9 Anxiety disorder, unspecified; E86.0 Dehydration; G51.0 Bell's palsy; Z88.8 Allergy status to other drugs, medicaments and biological substances; Z79.899 Other long term (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; Z79.890 Hormone replacement therapy
CPT/HCPCS: 36415; 71045; 80053; 80307; 81001; 83735; 85025; 99285-25; A9270; J7121

== ENCOUNTER 2025-05-26 20:53 | Emergency (ER) | payer OTHER ==
[~2025-05-26] VITALS: Ht 157.5 cm; Wt 53.6 kg
[~2025-05-26 20:53] MED LIST changes: +KLOR-CON M2020 MEQ PO; +REMERON15 MG PO
--- OUTSIDE RECORDS SUMMARY | 2025-05-26 21:01 | XMS ---
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 E.D. VISIT COUNT (12 MO.) 9 [place] [address] Bran Leopoldo TOTAL 12 NOTE: Visits indicate total known visits. ED/UCC VISIT TRACKING (12 MO.) 05/26/2025 20:55 [place] TYPE: Emergency COMPLAINT: - ALTERED MENTAL STATUS 04/23/2025 00:56 JE[place] TYPE: Emergency COMPLAINT: - POSS FEVER DIAGNOSES: - Allergy status to other drugs, medicaments and biological substances - Anxiety disorder, unspecified - Archibald's palsy - Dehydration - Hormone replacement therapy - Hypokalemia - Other retirement (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 - Weakness 04/05/2025 19:15 JE[place] TYPE: Emergency COMPLAINT: - CHEST PAIN DIAGNOSES: - Allergy status to analgesic agent - Allergy status to other drugs, medicaments and biological substances - Chest pain, unspecified - Gastro-esophageal reflux disease without esophagitis - Hormone replacement therapy - Other retirement (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 - Other pancytopenia 03/28/2025 00:45 JEYS[place] TYPE: Emergency COMPLAINT: - WEAKNESS DIAGNOSES: - Allergy status to other drugs, medicaments and biological substances - termite technician (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 - Pneumonia, unspecified organism - Weakness 03/11/2025 20:18 JEYS[place] TYPE: Emergency COMPLAINT: - ANXIETY DIAGNOSES: - Allergy status to narcotic agent - Anxiety disorder, unspecified - Chest pain, unspecified - Other rn long term care (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 - Other specified problems related to primary support group - Thrombocytopenia, unspecified 03/10/2025 20:53 JE[place] TYPE: Emergency COMPLAINT: - CHEST PAIN DIAGNOSES: - Allergy status to other antibiotic agents - Chest pain, unspecified - Hormone replacement therapy - termite technician (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 - Other rn long term care (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 - Pneumonia, unspecified organism [...] tract infection, site not specified 12/27/2024 10:46 [facility] TYPE: Emergency DIAGNOSES: - Anemia, unspecified - Embolism and thrombosis of renal vein - Intussusception - Sepsis, unspecified organism - Septic pulmonary embolism without acute cor pulmonale - Severe sepsis without septic shock - Thrombocytopenia, unspecified - Tubulo-interstitial nephritis, not specified as acute or chronic - GI Bleeding 12/27/2024 03:35 [facility] [place] TYPE: Emergency COMPLAINT: - Body Pain DIAGNOSES: - Body Pain 08/31/2024 16:15 JEYSON [place] TYPE: Emergency COMPLAINT: - PANIC ATTACH DIAGNOSES: - Allergy status to analgesic agent - Anxiety disorder, unspecified - custodial (current) use of systemic steroids 08/22/2024 23:05 [facility] TYPE: Emergency DIAGNOSES: - Contusion of scalp, initial encounter - Unspecified dementia, unspecified severity, without behavioral disturbance, psychotic disturbance, mood disturbance, and anxiety 06/02/2024 12:14 JEYSON Cowan TYPE: Emergency COMPLAINT: - WEAKNESS DIAGNOSES: - Allergy status to other drugs, medicaments and biological substances - Cough, unspecified - termite technician (current) use of systemic steroids - Other chest pain - Weakness INPATIENT VISIT TRACKING (12 MO.) 12/27/2024 10:46 [facility] TYPE: Internal Medicine DIAGNOSES: - [...] or chronic - Unspecified severe protein-calorie malnutrition [email or web address]
[2025-05-26 21:51] LABS: AMPHETAMINES, URINE NEGATIVE (NEGATIVE); BARBITURATES, URINE NEGATIVE (NEGATIVE); BENZODIAZEPINE, URINE NEGATIVE (NEGATIVE); CANNABINOID, URINE NEGATIVE (NEGATIVE); COCAINE, URINE NEGATIVE (NEGATIVE); ECSTASY, URINE NEGATIVE (NEGATIVE); FENTANYL, URINE NEGATIVE (NEGATIVE); METHADONE, URINE NEGATIVE (NEGATIVE); OPIATES, URINE NEGATIVE (NEGATIVE); OXYCODONE, URINE NEGATIVE (NEGATIVE); PHENCYCLIDINE, URINE NEGATIVE (NEGATIVE)
[2025-05-26 21:59] LABS: BASOPHILS 0.4 % (0.1-1.2); EOSINOPHILS 3.2 % (0.7-5.8); LYMPHOCYTES 13.8 % (19.3-51.7); MCH 24.3 PG (25.6-32.2); MCHC 31.6 g/dL (32.2-35.5); MCV 76.9 fL (79.4-94.8); MONOCYTES 6.7 % (4.7-12.5); NEUTROPHILS 75.5 % (34.0-71.1); RBC 3.42 M/uL (3.93-5.22)
[2025-05-26 22:12] LABS: ALT (SGPT) 11.0 U/L (14-59); AST (SGOT) 23.0 U/L (15-37); GLOMERULAR FILTRATION RATE,EST 90.0 mL/min (>60); PROTEIN, TOTAL 6.9 g/dL (6.4-8.2); UREA NITROGEN 18.0 mg/dL (7-18)
--- OUTSIDE RECORDS SUMMARY | 2025-05-26 22:34 | XMS | Continuity of Care Document ---
Demographics + + + | Address | [address] | | | [place] [address] | + + + | Preferred Language | Unknown | + + + | Marital Status | Unknown | + + + | Yarsani Affiliation | Unknown | + + + | Race | White | + + + | Ethnic Group | Unknown | + + + Author + + + | Author | [facility] | + + + | Organization | [facility] | + + + | Address | [address] | | | [place] [address] | + + + | Phone | | + + + Care Team Providers + + + + | Care Chief Dog License Inspector Name | Role | Phone | + + + + Unavailable | Unavailable | + + + + Allergies No information. Encounters No information. Functional Status No information. Immunizations No information. Medications No information. Problems No information. Procedures No information. Results/Labs +--------+--------+ +---------+--------+---------+ | test | date | facility | value | unit | notes | +--------+--------+ +---------+--------+---------+ + + | Result panel 1 | + + + + + + + + + | | 2025-04-21 | | 35 | mg/dl | (missing) | | Ceruloplasmi | 15:35 | [facility] | | | | | n SerPl-mCnc | | Medical | | | | | | | Center | | | | | | | Hospital | | | | + + + + + + + | Vit B1 | 2025-04-21 | | 70 | nmol/l | (Note) | | Bld-mCnc | 15:07:35 | [facility] | | | Vitamin | | | | Medical | | | supplementat | | | | Center | | | ion within | | | | Hospital | | | 24 hours | | | | | | | prior to | | | | | | | blood draw | | | | | | | may affect | | | | | | | the accuracy | | | | | | | of the | | | | | | | results. | | | | | | | This test | | | | | | | was | | | | | | | developed | | | | | | | and its | | | | | | | analytical | | | | | | | performance | | | | | | | characterist | | | | | | | ics have | | | | | | | been | | | | | | | determined | | | | | | | by [facility] | | | | | | | [facility]. | | | | | | | It has not | | | | | | | been cleared | | | | | | | or approved | | | | | | | by FDA. | | | | | | | This assay | | | | | | | has been | | | | | | | validated | | | | | | | pursuant to | | | | | | | the CLIA | | | | | | | regulations | | | | | | | and is used | | | | | | | for clinical | | | | | | | purposes. | | | | | | | MD[facility] med | | | | | | | fusion [id number] | | | | | | | [address] | | | | | | | [address] | | | [address] | | | | | | | [place] | | | | | | | [place] [address] | | | | | | | [phone] | | | | | | | Darrius | | | | | | | Josep Schilling | | | | | | | Frame, MD, | | | | | | | PhD | + + + + + + + | | 2025-04-21 | | [id number] | (missing) | (missing) | | (unavailable | 15:07:35 | [facility] | [facility] | | | | ) | | Medical | AVENUE | | | | | | Center | | | | | | | Hospital | | | | + + + + + + + | | 2025-04-21 | | [phone] | (missing) | (missing) | | (unavailable | 15:07:35 | [facility] | | | | | ) | | Medical | | | | | | | Center | | | | | | | Hospital | | | | + + + + + + + | | 2025-04-21 | | [place] | (missing) | (missing) | | (unavailable | 15:07:35 | [facility] | | | | | ) | | Medical | | | | | | | Center | | | | | | | Hospital | | | | + + + + + + + | | 2025-04-21 | | Lab | (missing) | (missing) | | (unavailable | 15:07:35 | [facility] | Director | | | | ) | | Medical | MEGAN | | | | | | Center | [facility] | | | | | | Hospital | | | | + + + + + + + | DREW Ser Ql | 2025-04-21 | | POSITIVE | (missing) | DREW IFA is a | | HEp2 subst | 15:07:35 | [facility] | | | first line | | | | Medical | | | screen for | | | | Center | | | detecting | | | | Hospital | | | the presence | | | | | | | of up to | | | | | | | approximatel | | | | | | | y 150 | | | | | | | autoantibodi | | | | | | | es in | | | | | | | various | | | | | | | autoimmune | | | | | | | diseases. A | | | | | | | positive DREW | | | | | | | IFA result | | | | | | | is | | | | | | | suggestive | | | | | | | of | | | | | | | autoimmune | | | | | | | disease and | | | | | | | reflexes to | | | | | | | titer and | | | | | | | pattern. | | | | | | | Further | | | | | | | laboratory | | | | | | | testing may | | | | | | | be | | | | | | | considered | | | | | | | if | | | | | | | clinically | | | | | | | indicated. | | | | | | | For | | | | | | | additional | | | | | | | information, | | | | | | | please | | | | | | | refer to | | | | | | | http://educa | | | | | | | [email or web address] | | | | | | | [email or web address] | | | | | | | m/faq/[email or web address] | | | | | | | (This link | | | | | | | is being | | | | | | | provided for | | | | | | | | | | | | | | informationa | | | | | | | l/ | | | | | | | educational | | | | | | | purposes | | | | | | | only.) | + + + + + + + | | 2025-04-21 | | Test | (missing) | (missing) | | (unavailable | 15:07:35 | [facility] | performed at | | | | ) | | Medical | [facility] | | | | | | Center | DIAGNOSTICS- | | | | | | Hospital | [place] | | | + + + + + + + | | 2025-04-21 | | [place] | (missing) | (missing) | | (unavailable | 15:07:35 | [facility] | | | | | ) | | Medical | | | | | | | Center | | | | | | | Hospital | | | | + + + + + + + + + | Result panel 2 | + + + + + + + + + | DREW Titr | 2025-04-29 | | 1:1280 | titer | Reference | | Ser | | [facility] | | | Range <1:40 | | | | Medical | | | Negative | | | | Center | | | 1:40-1:80 | | | | Hospital | | | Low Antibody | | | | | | | Level >1:80 | | | | | | | Elevated | | | | | | | Antibody | | | | | | | Level | + + + + + + + | | 2025-04-29 | | [address]01 | (missing) | (missing) | | (unavailable | | [facility] | [facility] | | | | ) | | Medical | AVENUE | | | | | | Center | | | | | | | Hospital | | | | + + + + + + + | | 2025-04-29 | | [phone] | (missing) | (missing) | | (unavailable | | [facility] | | | | | ) | | Medical | | | | | | | Center | | | | | | | Hospital | | | | + + + + + + + | | 2025-04-29 | | [place] | (missing) | (missing) | | (unavailable | | [facility] | | | | | ) | | Medical | | | | | | | Center | | | | | | | Hospital | | | | + + + + + + + | | 2025-04-29 | | Lab | (missing) | (missing) | | (unavailable | | [facility] | Director | | | | ) | | Medical | [facility] | | | | | | Center | [facility] | | | | | | Hospital | | | | + + + + + + + | DREW Pat | 2025-04-29 | | Nuclear, | (missing) | Homogeneous | | Ser-Imp | | [facility] | Homogeneous | | pattern is | | | | Medical | | | associated | | | | Center | | | with | | | | Hospital | | | systemic | | | | | | | lupuserythem | | | | | | | atosus | | | | | | | (SLE), | | | | | | | drug-induced | | | | | | | lupus and | | | | | | | juvenileidio | | | | | | | pathic | | | | | | | arthritis. | | | | | | | AC-1: | | | | | | | Homogeneous | | | | | | | Internationa | | | | | | | l Consensus | | | | | | | on DREW | | | | | | | Patterns(htt | | | | | | | [email or web address] | | | | | | | [email or web address]/[email or web address] | | | | | | | m-) | + + + + + + + | | 2025-04-29 | | Test | (missing) | (missing) | | (unavailable | | [facility] | performed at | | | | ) | | Medical | [facility] | | | | | | Center | DIAGNOSTICS- | | | | | | Hospital | [place] | | | + + + + + + + | | 2025-04-29 | | [place] | (missing) | (missing) | | (unavailable | | [facility] | | | | | ) | | Medical | | | | | | | Center | | | | | | | Hospital | | | | + + + + + + + Social History +--------+ + + | date | description | facility | +--------+ + + Vital Signs No information."
[2025-05-27] MEDS ORDERED: IBUPROFEN 600 MG TAB PO ONE (04:15)
[2025-05-27] MEDS ORDERED: LEVOTHYROXINE SODIUM 88 MCG TAB PO ONE (05:45)
--- NOTE | 2025-05-27 09:41 | NUR ---
ST COGNITION SCREEN; PT OBTAINED 17/30 ON SLUMS, INDICATIVE OF DEMENTIA (SCORE BELOW 20). PT DID REPORT THAT SHE "TOOK A PILL FOR ANXIETY" BEFORE BREAFKAST AND PRIOR TO CLINICIAN ARRIVAL, THOUGH PATIENT DID SEEM TO PARTICIPATE WELL AND RESULTS DEEMED RELIABLE. SCORE SHARED WITH RN, MD, AND CASE MGMT
[2025-05-27 11:04] VITALS: BP 102/66
== END 2025-05-27 11:04 | disposition home or self-care (01) ==
LOC: ED 20:53
PROVIDERS: Family Medicine
DX: T76.11XA Adult physical abuse, suspected, initial encounter (principal); S70.11XA Contusion of right thigh, initial encounter; S40.022A Contusion of left upper arm, initial encounter; S40.021A Contusion of right upper arm, initial encounter; Z63.8 Other specified problems related to primary support group; Z88.6 Allergy status to analgesic agent; Z88.8 Allergy status to other drugs, medicaments and biological substances; Z79.890 Hormone replacement therapy; Z79.899 Other long term (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; X58.XXXA Exposure to other specified factors, initial encounter
CPT/HCPCS: 36415; 71045; 80053; 80307; 85025; A9270; Q0177

== ENCOUNTER 2025-05-30 19:46 | Emergency (ER) | payer OTHER ==
[~2025-05-30] VITALS: Ht 157.5 cm; Wt 54.5 kg
--- OUTSIDE RECORDS SUMMARY | ~2025-05-30 | XMS | Continuity of Care Document ---
Demographics + + + | Address | [address] | | | [place] [address] | + + + | Preferred Language | Unknown | + + + | Marital Status | Unknown | + + + | Taoism Affiliation | Unknown | + + + | Race | White | + + + | Ethnic Group | Unknown | + + + Author + + + | Author | [facility] | + + + | Organization | [facility] | + + + | Address | [address] | | | [place] [address] | + + + | Phone | | + + + Care Team Providers + + + + | Care Building Wrecker Name | Role | Phone | + [...] (missing) | | Ceruloplasmi | 15:35 | [facility] | | | | | n SerPl-mCnc | | Medical | | | | | | | Center | | | | | | | Hospital | | | | + + + + + + + | Vit B1 | 2025-04-21 | | 70 | nmol/l | (Note) | | Bld-mCnc | 15:07:35 | [facility] | | | Vitamin | | [...] | | | | | | | [place] | | | | | | | [place] [address] | | | | | | | [phone] | | | | | | | Darrius | | | | | | | Josep Schilling | | | | | | | Frame, MD, | | | | | | | PhD | + + + + + + + | | 2025-04-21 | | [id number] | (missing) | (missing) | | (unavailable | 15:07:35 | [facility] | [place] | | | | ) | | Medical | AVENUE | | | | | | Center | | | | | | | Hospital | | | | + + + + + + + | | 2025-04-21 | | [phone] | (missing) | (missing) | | (unavailable | 15:07:35 | [facility] | | | | | ) | | Medical | | | | | | | Center | | | | | | | Hospital | | | | + + + + + + + | | 2025-04-21 | | [place] | (missing) | (missing) | | (unavailable | 15:07:35 | [facility] | | | | | ) | | Medical | | | | | | | Center | | | | | | | Hospital | | | | + + + + + + + | | 2025-04-21 | | Lab | (missing) | (missing) | | (unavailable | 15:07:35 | [facility] | Director | | | | [...] | | HEp2 subst | 15:07:35 | [facility] | | | first line | | [...] | | | | | | | m/faq/[id number] | | | | | | | [...] (missing) | | (unavailable | 15:07:35 | [facility] | performed at | | | | ) | | Medical | [facility] | | | | | | Center | DIAGNOSTICS- | | | | | | Hospital | [place] | | | + + + + + + + | | 2025-04-21 | | [place] | (missing) | (missing) | | (unavailable | 15:07:35 | [facility] | | | | | ) [...] | Reference | | Ser | | [facility] | | | Range <1:40 | | [...] | (missing) | | (unavailable | | [facility] | [place] | | | | ) | | Medical | AVENUE | | | | | | Center | | | | | | | Hospital | | | | + + + + + + + | | 2025-04-29 | | [phone] | (missing) | (missing) | | (unavailable | | [facility] | | | | | ) | | Medical | | | | | | | Center | | | | | | | Hospital | | | | + + + + + + + | | 2025-04-29 | | [place] | (missing) | (missing) | | (unavailable | | [facility] | | | | | ) | | Medical | | | | | | | Center | | | | | | | Hospital | | | | + + + + + + + | | 2025-04-29 | | Lab | (missing) | (missing) | | (unavailable | | [facility] | Director | | | | ) | | Medical | [facility] | | | | | | Center | [facility] | | | | | | Hospital | | | | + + + + + + + | DREW Pat | 2025-04-29 | | Nuclear, | (missing) | Homogeneous | | Ser-Imp | | [facility] | Homogeneous | | pattern is [...] | (missing) | | (unavailable | | [facility] | performed at | | | | ) | | Medical | [facility] | | | | | | Center | DIAGNOSTICS- | | | | | | Hospital | [place] | | | + + + + + + + | | 2025-04-29 | | [place] | (missing) | (missing) | | (unavailable | | [facility] | | | | | ) | | Medical | | | | | | | Center | | | | | | | Hospital | | | | + + + + + + + Social History +--------+ + + | date | description | facility | +--------+ + + Vital Signs No information."
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
[2025-05-30] MEDS ORDERED: ESCITALOPRAM OX10 MG PO (19:56)
[2025-05-30] MEDS ORDERED: [UNRECOGNIZED DRUG - OTHER] PO (19:56)
[2025-05-30] MEDS ORDERED: RISPERIDONE1 MG PO (19:56)
[2025-05-30] MEDS ORDERED: ALBUTEROL/IPRATROPIUM 3 ML NEB INH ONE (20:30)
[2025-05-30] MEDS ORDERED: LORazepam 2 MG/ML VIAL IV ONE (20:30)
[2025-05-30 20:32] LABS: BASOPHILS 0.3 % (0.1-1.2); EOSINOPHILS 2.9 % (0.7-5.8); LYMPHOCYTES 8.6 % (19.3-51.7); MCH 24.4 PG (25.6-32.2); MCHC 31.4 g/dL (32.2-35.5); MCV 77.7 fL (79.4-94.8); MONOCYTES 5.1 % (4.7-12.5); NEUTROPHILS 82.8 % (34.0-71.1); RBC 3.36 M/uL (3.93-5.22)
[2025-05-30 20:34] LABS: INR 1.13 (0.80-1.30); PROTIME 13.7 Sec (11.2-14.2)
[2025-05-30 20:46] LABS: ALT (SGPT) 12.0 U/L (14-59); AST (SGOT) 17.0 U/L (15-37); GLOMERULAR FILTRATION RATE,EST 98.0 mL/min (>60); PROTEIN, TOTAL 7.2 g/dL (6.4-8.2); UREA NITROGEN 19.0 mg/dL (7-18)
[2025-05-30] MEDS ORDERED: POTASSIUM CHLORIDE 10 MEQ TABCR PO ONE (21:45)
[2025-05-30] MEDS ORDERED: LASIX20 MG PO (22:30)
[2025-05-30 22:43] VITALS: BP 111/63
--- NOTE | 2025-05-31 21:27 | EKG ---
[facility] [address] [place] [address] Signed Normal sinus rhythm Minimal voltage criteria for LVH, may be normal variant ( R in aVL ) Inferior infarct , age undetermined Abnormal ECG When compared with ECG of 05-APR-2025 19:27, Inferior infarct is now present Confirmed by Swapnil Chaudhry MD () on 05/31/2025 9:27:26 PM Electronically Signed By: SWAPNIL CHAUDHRY MD 05/31/25 2127 PATIENT NAME: ROBINA NGUYEN Electrocardiogram DATE OF : 67 PHYSICIAN: SWAPNIL CHAUDHRY MD REPORT #: [id number] REPORT IS CONFIDENTIAL AND NOT TO BE RELEASED WITHOUT AUTHORIZATION
== END 2025-05-30 22:45 | disposition home or self-care (01) ==
LOC: ED 19:46
PROVIDERS: Family Medicine
DX: R07.89 Other chest pain (principal); I50.9 Heart failure, unspecified; F41.9 Anxiety disorder, unspecified; R91.1 Solitary pulmonary nodule; Z88.6 Allergy status to analgesic agent; Z88.8 Allergy status to other drugs, medicaments and biological substances; Z79.890 Hormone replacement therapy; Z79.899 Other long term (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
CPT/HCPCS: 36415; 71045; 71260; 80053; 83735; 83880; 84484; 85025; 85379; 85610; 93005; 93010; 94640; 96374; 99285-25; A9270; J2060; Q9967

== ENCOUNTER 2025-06-03 06:09 | Emergency (ER) | payer OTHER ==
[~2025-06-03] VITALS: Ht 157.5 cm; Wt 51.2 kg
--- OUTSIDE RECORDS SUMMARY | ~2025-06-03 | XMS | Continuity of Care Document ---
Demographics + + + | Address | [address] | | | [place] [address] | + + + | Preferred Language | Unknown | + + + | Marital Status | Unknown | + + + | Synagogue Affiliation | Unknown | + + + | Race | White | + + + | Ethnic Group | Unknown | + + + Author + + + | Author | [facility] | + + + | Organization | [facility] | + + + | Address | [address] | | | [place] [address] | + + + | Phone | | + + + Care Team Providers + + + + | Care Archives Specialist Name | Role | Phone | + [...] (missing) | | Ceruloplasmi | 15:35 | [facility] | | | | | n SerPl-mCnc | | Medical | | | | | | | Center | | | | | | | Hospital | | | | + + + + + + + | Vit B1 | 2025-04-21 | | 70 | nmol/l | (Note) | | Bld-mCnc | 15:07:35 | [facility] | | | Vitamin | | | [...] | | | | | | | [employer] | | | | | | | [place] [address] | | | | | | | [phone] | | | | | | | Darrius | | | | | | | Josep Schilling | | | | | | | Frame, MD, | | | | | | | PhD | + + + + + + + | | 2025-04-21 | | [phone] | (missing) | (missing) | | (unavailable | 15:07:35 | [facility] | [facility] | | | | ) | | Medical | AVENUE | | | | | | Center | | | | | | | Hospital | | | | + + + + + + + | | 2025-04-21 | | [phone] | (missing) | (missing) | | (unavailable | 15:07:35 | [facility] | | | | | ) | | Medical | | | | | | | Center | | | | | | | Hospital | | | | + + + + + + + | | 2025-04-21 | | [place] | (missing) | (missing) | | (unavailable | 15:07:35 | [facility] | | | | | ) | | Medical | | | | | | | Center | | | | | | | Hospital | | | | + + + + + + + | | 2025-04-21 | | Lab | (missing) | (missing) | | (unavailable | 15:07:35 | [facility] | Director | | | | ) | | Medical | [facility] | | | | | | Center | [facility] | | | | | | Hospital | | | | + + + + + + + | DREW Ser Ql | 2025-04-21 | | POSITIVE | (missing) | DREW IFA is a | | HEp2 subst | 15:07:35 | [facility] | | | first line | | [...] | | | | | | | m/faq/[id number] | | | | | | | [...] (missing) | | (unavailable | 15:07:35 | [facility] | performed at | | | | ) | | Medical | [facility] | | | | | | Center | DIAGNOSTICS- | | | | | | Hospital | LEFT HAND | | | + + + + + + + | | 2025-04-21 | | LEFT HAND | (missing) | (missing) | | (unavailable | 15:07:35 | [facility] | | | | | ) | [...] | Reference | | Ser | | [facility] | | | Range <1:40 | | [...] | (missing) | | (unavailable | | [facility] | [facility] | | | | ) | | Medical | AVENUE | | | | | | Center | | | | | | | Hospital | | | | + + + + + + + | | 2025-04-29 | | [phone] | (missing) | (missing) | | (unavailable | | [facility] | | | | | ) | | Medical | | | | | | | Center | | | | | | | Hospital | | | | + + + + + + + | | 2025-04-29 | | CA | (missing) | (missing) | | (unavailable | | [facility] | | | | | ) | | Medical | | | | | | | Center | | | | | | | Hospital | | | | + + + + + + + | | 2025-04-29 | | Lab | (missing) | (missing) | | (unavailable | | [facility] | Director | | | | ) | | Medical | [facility] | | | | | | Center | [facility] | | | | | | Hospital | | | | + + + + + + + | DREW Pat | 2025-04-29 | | Nuclear, | (missing) | Homogeneous | | Ser-Imp | | [facility] | Homogeneous | | pattern is | [...] | (missing) | | (unavailable | | [facility] | performed at | | | | ) | | Medical | [facility] | | | | | | Center | DIAGNOSTICS- | | | | | | Hospital | LEFT HAND | | | + + + + + + + | | 2025-04-29 | | LEFT HAND | (missing) | (missing) | | (unavailable | | [facility] | | | | | ) | | Medical | | | | | | | Center | | | | | | | Hospital | | | | + + + + + + + Social History +--------+ + + | date | description | facility | +--------+ + + Vital Signs No information."
[~2025-06-03 06:09] MED LIST changes: +ESCITALOPRAM OX10 MG PO; +LASIX20 MG PO; +RISPERIDONE1 MG PO; +[UNRECOGNIZED DRUG - OTHER] PO
--- OUTSIDE RECORDS SUMMARY | 2025-06-03 06:16 | XMS ---
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 E.Aime. VISIT COUNT (12 MO.) [address] [place] [address] [address] [place] TOTAL 13 NOTE: Visits indicate total known visits. ED/UCC VISIT TRACKING (12 MO.) 06/03/2025 06:09 [facility] TYPE: Emergency COMPLAINT: - RT LEG INJURY 05/30/2025 19:47 [facility] [place] TYPE: Emergency COMPLAINT: - CHEST PAIN DIAGNOSES: - Allergy status to analgesic agent - Allergy status to other drugs, medicaments and biological substances - Anxiety disorder, unspecified - Chest pain, unspecified - Heart failure, unspecified - Hormone replacement therapy - Other chest pain - Other custodial (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 - Solitary pulmonary nodule 05/26/2025 20:55 [facility] [place] TYPE: Emergency [...] encounter - Hormone replacement therapy - Other custodial (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 - Other specified problems related to primary support group 04/23/2025 00:56 [facility] [place] TYPE: Emergency COMPLAINT: - POSS FEVER DIAGNOSES: - Allergy status to other drugs, medicaments and biological substances - Anxiety disorder, unspecified - Archibald's palsy - Dehydration - Hormone replacement therapy - Hypokalemia - Other custodial (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 - Weakness 04/05/2025 19:15 [facility] [place] TYPE: Emergency COMPLAINT: - CHEST PAIN DIAGNOSES: - Allergy status to analgesic agent - Allergy status to other drugs, medicaments and biological substances - Chest pain, unspecified - Gastro-esophageal reflux disease without esophagitis - Hormone replacement therapy - Other terminal gauger (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 - Other pancytopenia 03/28/2025 00:45 [facility] [place] TYPE: Emergency COMPLAINT: - WEAKNESS DIAGNOSES: - Allergy status to other drugs, medicaments and biological substances - intermediate accountant (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 - Pneumonia, unspecified organism - Weakness 03/11/2025 20:18 [facility] [place] TYPE: Emergency COMPLAINT: - ANXIETY DIAGNOSES: - Allergy status to narcotic agent - Anxiety disorder, unspecified - Chest pain, unspecified - Other custodial (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 - Other specified problems related to primary support group - Thrombocytopenia, unspecified 03/10/2025 20:53 [facility] [place] TYPE: Emergency COMPLAINT: - CHEST PAIN DIAGNOSES: - Allergy status to other antibiotic agents - Chest pain, unspecified - Hormone replacement therapy - intermediate accountant (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 - Other custodial (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 - Pneumonia, unspecified organism 03/04/2025 01:33 [facility] [place] TYPE: Emergency COMPLAINT: - KNEE PAIN DIAGNOSES: - Allergy status to other antibiotic agents - Cellulitis of right lower limb - Hormone replacement therapy - Other custodial (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 - Pain in left wrist - Pain in right knee - Pain in right wrist - Urinary tract infection, site not specified 12/27/2024 10:46 [facility] TYPE: Emergency DIAGNOSES: - Anemia, unspecified - Embolism and thrombosis of renal vein - Intussusception - Sepsis, unspecified organism - Septic pulmonary embolism without acute cor pulmonale - Severe sepsis without septic shock - Thrombocytopenia, unspecified - Tubulo-interstitial nephritis, not specified as acute or chronic - GI Bleeding 12/27/2024 03:35 [facility] [place] TYPE: Emergency COMPLAINT: - Body Pain DIAGNOSES: - Body Pain 08/31/2024 16:15 [facility] TYPE: Emergency COMPLAINT: - PANIC ATTACH DIAGNOSES: - Allergy status to analgesic agent - Anxiety disorder, unspecified - nursing home (current) use of systemic steroids 08/22/2024 23:05 [facility] TYPE: Emergency DIAGNOSES: - Contusion of scalp, initial encounter - Unspecified dementia, unspecified severity, without behavioral disturbance, psychotic disturbance, mood disturbance, and anxiety INPATIENT VISIT TRACKING (12 MO.) 12/27/2024 10:46 [facility] TYPE: Internal Medicine DIAGNOSES: - [...] or chronic - Unspecified severe protein-calorie malnutrition [email or web address]
[2025-06-03] MEDS ORDERED: DEXAMETHASONE SOD PHOS 10 MG/ML VIAL PO ONE (06:30)
[2025-06-03 06:49] LABS: BASOPHILS 0 % (0.1-1.2); EOSINOPHILS 3.3 % (0.7-5.8); LYMPHOCYTES 10.5 % (19.3-51.7); MCH 24.5 PG (25.6-32.2); MCHC 32.1 g/dL (32.2-35.5); MCV 76.1 fL (79.4-94.8); MONOCYTES 4.0 % (4.7-12.5); NEUTROPHILS 81.8 % (34.0-71.1); RBC 3.31 M/uL (3.93-5.22)
[2025-06-03 07:03] LABS: ALT (SGPT) 7.0 U/L (14-59); AST (SGOT) 12.0 U/L (15-37); GLOMERULAR FILTRATION RATE,EST 84.0 mL/min (>60); PROTEIN, TOTAL 7.3 g/dL (6.4-8.2); UREA NITROGEN 19.0 mg/dL (7-18)
[2025-06-03] MEDS ORDERED: POTASSIUM CHLO20 ME2 PO (08:25)
[2025-06-03] MEDS ORDERED: POTASSIUM CHLORIDE 10 MEQ TABCR PO ONE (08:30)
[2025-06-03 09:10] VITALS: BP 119/74
== END 2025-06-03 09:10 | disposition home or self-care (01) ==
LOC: ED 06:09
PROVIDERS: Internal Medicine
DX: M79.661 Pain in right lower leg (principal); E87.6 Hypokalemia; F41.9 Anxiety disorder, unspecified; Z88.6 Allergy status to analgesic agent; Z88.8 Allergy status to other drugs, medicaments and biological substances; Z79.890 Hormone replacement therapy; Z79.899 Other long term (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
CPT/HCPCS: 36415; 80053; 85025; 85379; 93971; 99284-25; A9270; J1100; Q0177

== ENCOUNTER 2025-06-09 01:28 | Emergency (ER) | payer OTHER ==
[~2025-06-09] VITALS: Ht 157.5 cm; Wt 54.8 kg
[~2025-06-09 01:28] MED LIST changes: +POTASSIUM CHLO20 ME2 PO
--- OUTSIDE RECORDS SUMMARY | 2025-06-09 01:33 | XMS ---
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 - 2 Visits in 30 Days CARE PROVIDERS MARKUS FONTANA Community Health Worker 11/25/2023-Current PHONE: [phone] [facility] Pediatrics Current CARE SYSTEM \F\ <UNAVAIL> PHONE: [phone] Sg has no Care Guidelines for this patient. E.D. VISIT COUNT (12 MO.) [address] [place] [address] Bran Mina TOTAL 14 NOTE: Visits indicate total known visits. ED/UCC VISIT TRACKING (12 MO.) 06/09/2025 01:29 [facility] [place] TYPE: Emergency COMPLAINT: - CHEST PAIN 06/03/2025 06:09 [facility] [place] TYPE: Emergency COMPLAINT: - RT LEG INJURY DIAGNOSES: - Allergy status to analgesic agent - Allergy status to other drugs, medicaments and biological substances - Anxiety disorder, unspecified - Hormone replacement therapy - Hypokalemia - Other salvage determiner (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 - Pain in leg, unspecified - Pain in right lower leg 05/30/2025 19:47 [facility] [place] TYPE: Emergency COMPLAINT: - CHEST PAIN DIAGNOSES: - Allergy status to analgesic agent - Allergy status to other drugs, medicaments and biological substances - Anxiety disorder, unspecified - Chest pain, unspecified - Heart failure, unspecified - Hormone replacement therapy - Other chest pain - Other half-way (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 - Solitary pulmonary nodule [...] encounter - Hormone replacement therapy - Other half-way (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 - Other specified problems related to primary support group 04/23/2025 00:56 [facility] [place] TYPE: Emergency COMPLAINT: - POSS FEVER DIAGNOSES: - Allergy status to other drugs, medicaments and biological substances - Anxiety disorder, unspecified - Archibald's palsy - Dehydration - Hormone replacement therapy - Hypokalemia - Other salvage determiner (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 - Weakness 04/05/2025 19:15 [facility] [place] TYPE: Emergency COMPLAINT: - CHEST PAIN DIAGNOSES: - Allergy status to analgesic agent - Allergy status to other drugs, medicaments and biological substances - Chest pain, unspecified - Gastro-esophageal reflux disease without esophagitis - Hormone replacement therapy - Other half-way (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 - Other pancytopenia 03/28/2025 00:45 [facility] [place] TYPE: Emergency COMPLAINT: - WEAKNESS DIAGNOSES: - Allergy status to other drugs, medicaments and biological substances - correction (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 - Pneumonia, unspecified organism - Weakness 03/11/2025 20:18 [facility] [place] TYPE: Emergency COMPLAINT: - ANXIETY DIAGNOSES: - Allergy status to narcotic agent - Anxiety disorder, unspecified - Chest pain, unspecified - Other half-way (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 - Other specified problems related to primary support group - Thrombocytopenia, unspecified 03/10/2025 20:53 [facility] [place] TYPE: Emergency COMPLAINT: - CHEST PAIN DIAGNOSES: - Allergy status to other antibiotic agents - Chest pain, unspecified - Hormone replacement therapy - correction (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 - Other salvage determiner (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 - Pneumonia, unspecified organism 03/04/2025 01:33 [facility] [place] TYPE: Emergency COMPLAINT: - KNEE PAIN DIAGNOSES: - Allergy status to other antibiotic agents - Cellulitis of right lower limb - Hormone replacement therapy - Other salvage determiner (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 - Pain in left wrist - Pain in right knee - Pain in right wrist - Urinary tract infection, site not specified 12/27/2024 10:46 [facility] TYPE: Emergency DIAGNOSES: - Anemia, unspecified - Embolism and thrombosis of renal vein - Intussusception - Sepsis, unspecified organism - Septic pulmonary embolism without acute cor pulmonale - Severe sepsis without septic shock - Thrombocytopenia, unspecified - Tubulo-interstitial nephritis, not specified as acute or chronic - GI Bleeding 12/27/2024 03:35 [facility] [place] TYPE: Emergency COMPLAINT: - Body Pain DIAGNOSES: - Body Pain 08/31/2024 16:15 [facility] TYPE: Emergency COMPLAINT: - PANIC ATTACH DIAGNOSES: - Allergy status to analgesic agent - Anxiety disorder, unspecified - correction (current) use of systemic steroids 08/22/2024 23:05 [facility] TYPE: Emergency DIAGNOSES: - Contusion of scalp, initial encounter - Unspecified dementia, unspecified severity, without behavioral disturbance, psychotic disturbance, mood disturbance, and anxiety INPATIENT VISIT TRACKING (12 MO.) 12[facility]27/[facility]24 10:[facility] DIAGNOSES: - [...] or chronic - Unspecified severe protein-calorie malnutrition [email or web address]
[2025-06-09 01:47] LABS: BASOPHILS 0 % (0.1-1.2); EOSINOPHILS 3.9 % (0.7-5.8); LYMPHOCYTES 10.3 % (19.3-51.7); MCH 25.4 PG (25.6-32.2); MCHC 32.5 g/dL (32.2-35.5); MCV 78.0 fL (79.4-94.8); MONOCYTES 5.3 % (4.7-12.5); NEUTROPHILS 79.1 % (34.0-71.1); RBC 3.27 M/uL (3.93-5.22)
[2025-06-09 01:57] LABS: INR 1.12 (0.80-1.30); PROTIME 13.6 Sec (11.2-14.2)
[2025-06-09 02:09] LABS: ALT (SGPT) 11.0 U/L (14-59); AST (SGOT) 16.0 U/L (15-37); GLOMERULAR FILTRATION RATE,EST 100.0 mL/min (>60); PROTEIN, TOTAL 6.7 g/dL (6.4-8.2); UREA NITROGEN 15.0 mg/dL (7-18)
[2025-06-09] MEDS ORDERED: ALPRAZolam 0.5 MG TAB PO ONE (02:30)
[2025-06-09 03:40] VITALS: BP 106/68
--- NOTE | 2025-06-09 15:03 | EKG ---
[facility] [address] [place], [place] [address] Signed Normal sinus rhythm Minimal voltage criteria for LVH, may be normal variant ( R in aVL ) Inferior infarct (cited on or before 28-MAR-2025) Abnormal ECG When compared with ECG of 30-MAY-2025 19:53, No significant change was found Confirmed by REBEKAH CHRISTIANSON MD ([id number]) on 06/09/2025 3:03:45 PM Electronically Signed By: REBEKAH CHRISTIANSON 06/09/25 1503 PATIENT NAME: ROBINA NGUYEN Electrocardiogram DATE OF : 67 PHYSICIAN: REBEKAH CHRISTIANSON REPORT #: [id number] REPORT IS CONFIDENTIAL AND NOT TO BE RELEASED WITHOUT AUTHORIZATION
== END 2025-06-09 05:14 | disposition home or self-care (01) ==
LOC: ED 01:28
PROVIDERS: Family Medicine
DX: R07.89 Other chest pain (principal); J44.9 Chronic obstructive pulmonary disease, unspecified; Z79.899 Other long term (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; Z88.5 Allergy status to narcotic agent; Z88.8 Allergy status to other drugs, medicaments and biological substances
CPT/HCPCS: 36415; 71045; 80053; 83735; 83880; 84484; 85025; 85610; 93005; 93010; 99285-25

== ENCOUNTER 2025-06-09 18:49 | Emergency (ER) | payer OTHER ==
[~2025-06-09] VITALS: Ht 157.5 cm; Wt 56.6 kg
--- OUTSIDE RECORDS SUMMARY | ~2025-06-09 | XMS | Continuity of Care Document ---
Demographics + + + | Address | [address] | | | [place] [address] | + + + | Preferred Language | Unknown | + + + | Marital Status | Unknown | + + + | Congregation Affiliation | Unknown | + + + | Race | White | + + + | Ethnic Group | Unknown | + + + Author + + + | Author | [facility] | + + + | Organization | [facility] | + + + | Address | [address] | | | [place] [address] | + + + | Phone | | + + + Care Team Providers + + + + | Care Stationary Fireman Name | Role | Phone | + [...] (missing) | | Ceruloplasmi | 15:35 | [facility] | | | | | n SerPl-mCnc | | Medical | | | | | | | Center | | | | | | | Hospital | | | | + + + + + + + | Vit B1 | 2025-04-21 | | 70 | nmol/l | (Note) | | Bld-mCnc | 15:07:35 | [facility] | | | Vitamin | [...] | | | | | | | [place] | | | | | | | [place] [address] | | | | | | | [phone] | | | | | | | Darrius | | | | | | | Josep Schilling | | | | | | | Frame, MD, | | | | | | | PhD | + + + + + + + | | 2025-04-21 | | [phone] | (missing) | (missing) | | (unavailable | 15:07:35 | [facility] | [place] | | | | ) | | Medical | AVENUE | | | | | | Center | | | | | | | Hospital | | | | + + + + + + + | | 2025-04-21 | | [phone] | (missing) | (missing) | | (unavailable | 15:07:35 | [facility] | | | | | ) | | Medical | | | | | | | Center | | | | | | | Hospital | | | | + + + + + + + | | 2025-04-21 | | [place] | (missing) | (missing) | | (unavailable | 15:07:35 | [facility] | | | | | ) | | Medical | | | | | | | Center | | | | | | | Hospital | | | | + + + + + + + | | 2025-04-21 | | Lab | (missing) | (missing) | | (unavailable | 15:07:35 | [facility] | Director | | | [...] | | HEp2 subst | 15:07:35 | [facility] | | | first line | | [...] | | | | | | | m/faq/[id number] | | | | | | | [...] (missing) | | (unavailable | 15:07:35 | [facility] | performed at | | | | ) | | Medical | [facility] | | | | | | Center | DIAGNOSTICS- | | | | | | Hospital | [place] | | | + + + + + + + | | 2025-04-21 | | [place] | (missing) | (missing) | | (unavailable | 15:07:35 | [facility] | | | | | [...] | Reference | | Ser | | [facility] | | | Range <1:40 | | [...] | (missing) | | (unavailable | | [facility] | [place] [place] | | | | ) | | Medical | AVENUE | | | | | | Center | | | | | | | Hospital | | | | + + + + + + + | | 2025-04-29 | | [phone] | (missing) | (missing) | | (unavailable | | [facility] | | | | | ) | | Medical | | | | | | | Center | | | | | | | Hospital | | | | + + + + + + + | | 2025-04-29 | | [place] | (missing) | (missing) | | (unavailable | | [facility] | | | | | ) | | Medical | | | | | | | Center | | | | | | | Hospital | | | | + + + + + + + | | 2025-04-29 | | Lab | (missing) | (missing) | | (unavailable | | [facility] | Director | | | | ) | | Medical | [facility] | | | | | | Center | [facility] | | | | | | Hospital | | | | + + + + + + + | DREW Pat | 2025-04-29 | | Nuclear, | (missing) | Homogeneous | | Ser-Imp | | [facility] | Homogeneous | | pattern [...] | (missing) | | (unavailable | | [facility] | performed at | | | | ) | | Medical | [facility] | | | | | | Center | DIAGNOSTICS- | | | | | | Hospital | [place] | | | + + + + + + + | | 2025-04-29 | | [place] | (missing) | (missing) | | (unavailable | | [facility] | | | | | [...]
--- OUTSIDE RECORDS SUMMARY | 2025-06-09 18:56 | XMS ---
PreManage Notification: ROBINA NGUYEN Security Wire Taper Events No recent Security Events currently on file CRITERIA MET - 6 ED Visits in 6 Months - [facility] - 2 Visits in 30 Days CARE PROVIDERS MARKUS FONTANA Community Health Worker 11/25/2023-Current PHONE: [phone] [facility] Pediatrics Current CARE SYSTEM \F\ <UNAVAIL> PHONE: [phone] Sg has no Care Guidelines for this patient. E.D. VISIT COUNT (12 MO.) [address] [place] [address] Bran Mina TOTAL 15 NOTE: Visits indicate total known visits. ED/UCC VISIT TRACKING (12 MO.) 06/09/2025 18:50 [facility] [place] TYPE: Emergency COMPLAINT: - FALL 06/09/2025 01:29 [facility] [place] TYPE: Emergency COMPLAINT: - CHEST PAIN 06/03/2025 06:09 [facility] [place] TYPE: Emergency COMPLAINT: - RT LEG INJURY DIAGNOSES: - Allergy status to analgesic agent - Allergy status to other drugs, medicaments and biological substances - Anxiety disorder, unspecified - Hormone replacement therapy - Hypokalemia - Other care home (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 - Pain in leg, [...] therapy - Other chest pain - Other care home (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 - Solitary pulmonary nodule 05/26/2025 20:55 [facility] [place] TYPE: Emergency COMPLAINT: - ALTERED MENTAL [...] encounter - Hormone replacement therapy - Other care home (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 - Other specified problems related to primary support group 04/23/2025 00:[address] [facility] [place] TYPE: Emergency COMPLAINT: - POSS FEVER DIAGNOSES: - Allergy status to other drugs, medicaments and biological substances - Anxiety disorder, unspecified - Archibald's palsy - Dehydration - Hormone replacement therapy - Hypokalemia - Other buttermaker helper (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 - Weakness 04/05/2025 19:15 [facility] [place] TYPE: Emergency COMPLAINT: - CHEST PAIN DIAGNOSES: - Allergy status to analgesic agent - Allergy status to other drugs, medicaments and biological substances - Chest pain, unspecified - Gastro-esophageal reflux disease without esophagitis - Hormone replacement therapy - Other buttermaker helper (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 - Other pancytopenia 03/28/2025 00:45 [facility] [place] TYPE: Emergency COMPLAINT: - WEAKNESS DIAGNOSES: - Allergy status to other drugs, medicaments and biological substances - 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 - Pneumonia, unspecified organism - Weakness 03/11/2025 20:18 [facility] [place] TYPE: Emergency COMPLAINT: - ANXIETY DIAGNOSES: - Allergy status to narcotic agent - Anxiety disorder, unspecified - Chest pain, unspecified - Other care home (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 - Other specified problems related to primary support group - Thrombocytopenia, unspecified 03/10/2025 20:53 [facility] [place] TYPE: Emergency COMPLAINT: - CHEST PAIN DIAGNOSES: - Allergy status to other antibiotic agents - Chest pain, unspecified - Hormone replacement therapy - 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 - Other care home (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 - Pneumonia, unspecified organism [...] tract infection, site not specified [facility]/27[facility]2024 10[facility] DIAGNOSES: - Anemia, unspecified - Embolism and thrombosis of renal vein - Intussusception - Sepsis, unspecified organism - Septic pulmonary embolism without acute cor pulmonale - Severe sepsis without septic shock - Thrombocytopenia, unspecified - Tubulo-interstitial nephritis, not specified as acute or chronic - GI Bleeding 12/27/2024 03:35 [facility] TYPE: Emergency COMPLAINT: - Body Pain DIAGNOSES: - Body Pain 08/31/2024 16:15 [facility] TYPE: Emergency COMPLAINT: - PANIC ATTACH DIAGNOSES: - Allergy status to analgesic agent - Anxiety disorder, unspecified - assisted (current) use of systemic steroids 08/22/2024 23:05 [facility] TYPE: Emergency DIAGNOSES: - Contusion of scalp, initial encounter - Unspecified dementia, unspecified severity, without behavioral disturbance, psychotic disturbance, mood disturbance, and anxiety INPATIENT VISIT TRACKING (12 MO.) 12/27/2024 10:46 [facility] TYPE: Internal Medicine DIAGNOSES: - [...] or chronic - Unspecified severe protein-calorie malnutrition [email or web address]
[2025-06-09 20:46] LABS: BASOPHILS 0 % (0.1-1.2); EOSINOPHILS 3.3 % (0.7-5.8); LYMPHOCYTES 9.5 % (19.3-51.7); MCH 24.7 PG (25.6-32.2); MCHC 31.8 g/dL (32.2-35.5); MCV 77.8 fL (79.4-94.8); MONOCYTES 5.1 % (4.7-12.5); NEUTROPHILS 80.9 % (34.0-71.1); RBC 3.60 M/uL (3.93-5.22)
[2025-06-09 21:11] LABS: ALT (SGPT) 12 U/L (14-59); AST (SGOT) 14 U/L (15-37); GLOMERULAR FILTRATION RATE,EST 107 mL/min (>60); PROTEIN, TOTAL 7.4 g/dL (6.4-8.2); TSH, 3RD GENERATION 3.263 uIU/mL (0.358-3.740); UREA NITROGEN 13 mg/dL (7-18)
[2025-06-09] MEDS ORDERED: ALPRAZolam 0.5 MG TAB PO ONE (22:45)
[2025-06-09 23:14] LABS: BLOOD/HGB, URINE NEGATIVE (Negative); KETONE, URINE NEGATIVE (Negative); LEUK ESTERASE, URINE NEGATIVE (negative); NITRITE, URINE NEGATIVE (negative)
[2025-06-09 23:28] LABS: AMPHETAMINES, URINE NEGATIVE (NEGATIVE); BARBITURATES, URINE NEGATIVE (NEGATIVE); BENZODIAZEPINE, URINE NEGATIVE (NEGATIVE); CANNABINOID, URINE NEGATIVE (NEGATIVE); COCAINE, URINE NEGATIVE (NEGATIVE); ECSTASY, URINE NEGATIVE (NEGATIVE); FENTANYL, URINE NEGATIVE (NEGATIVE); METHADONE, URINE NEGATIVE (NEGATIVE); OPIATES, URINE NEGATIVE (NEGATIVE); OXYCODONE, URINE NEGATIVE (NEGATIVE); PHENCYCLIDINE, URINE NEGATIVE (NEGATIVE)
[2025-06-10] MEDS ORDERED: ZOLPIDEM TARTRATE 5 MG TAB PO ONE (03:30)
[2025-06-10 11:57] VITALS: BP 120/79
== END 2025-06-10 11:58 | disposition home or self-care (01) ==
LOC: ED 18:49
PROVIDERS: Family Medicine
DX: S33.8XXA Sprain of other parts of lumbar spine and pelvis, initial encounter (principal); F03.918 Unspecified dementia, unspecified severity, with other behavioral disturbance; J44.9 Chronic obstructive pulmonary disease, unspecified; X58.XXXA Exposure to other specified factors, initial encounter; Z79.899 Other long term (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; Z88.5 Allergy status to narcotic agent; Z88.8 Allergy status to other drugs, medicaments and biological substances
CPT/HCPCS: 36415; 72220; 80053; 80307; 81003; 84443; 85025; 99283; G0480

== ENCOUNTER 2025-06-10 15:31 | Emergency (ER) | payer OTHER ==
[~2025-06-10] VITALS: Ht 157.5 cm; Wt 51.0 kg
--- OUTSIDE RECORDS SUMMARY | ~2025-06-10 | XMS | Continuity of Care Document ---
Demographics + + + | Address | [address] | | | [place] [address] | + + + | Preferred Language | Unknown | + + + | Marital Status | Unknown | + + + | Catholic Affiliation | Unknown | + + + | Race | White | + + + | Ethnic Group | Unknown | + + + Author + + + | Author | [facility] | + + + | Organization | [facility] | + + + | Address | [address] | | | [place] [address] | + + + | Phone | | + + + Care Team Providers + + + + | Care Programmer Engineering And Scientific Name | Role | Phone | + [...] (missing) | | Ceruloplasmi | 15:35 | [facility] | | | | | n SerPl-mCnc | | Medical | | | | | | | Center | | | | | | | Hospital | | | | + + + + + + + | Vit B1 | 2025-04-21 | | 70 | nmol/l | (Note) | | Bld-mCnc | 15:07:35 | [facility] | | | Vitamin | | | [...] | | | | | | | [place] | | | | | | | [place] [address] | | | | | | | [phone] | | | | | | | Darrius | | | | | | | Josep Schilling | | | | | | | Frame, MD, | | | | | | | PhD | + + + + + + + | | 2025-04-21 | | [phone] | (missing) | (missing) | | (unavailable | 15:07:35 | [facility] | [place] | | | | ) | | Medical | AVENUE | | | | | | Center | | | | | | | Hospital | | | | + + + + + + + | | 2025-04-21 | | [phone] | (missing) | (missing) | | (unavailable | 15:07:35 | [facility] | | | | | ) | | Medical | | | | | | | Center | | | | | | | Hospital | | | | + + + + + + + | | 2025-04-21 | | [place] | (missing) | (missing) | | (unavailable | 15:07:35 | [facility] | | | | | ) | | Medical | | | | | | | Center | | | | | | | Hospital | | | | + + + + + + + | | 2025-04-21 | | Lab | (missing) | (missing) | | (unavailable | 15:07:35 | [facility] | Director | | | | ) | | Medical | [facility] | | | | | | Center | [facility] | | | | | | Hospital | | | | + + + + + + + | DREW Ser Ql | 2025-04-21 | | POSITIVE | (missing) | DREW IFA is a | | HEp2 subst | 15:07:35 | [facility] | | | first line | | [...] | | | | | | | m/faq/[id number] | | | | | | | [...] (missing) | | (unavailable | 15:07:35 | [facility] | performed at | | | | ) | | Medical | [facility] | | | | | | Center | DIAG[facility]STICS- | | | | | | Hospital | [facility] | | | + + + + + + + | | 2025-04-21 | | [facility] | (missing) | (missing) | | (unavailable | 15:07:35 | [facility] | | | | | ) | [...] | Reference | | Ser | | [facility] | | | Range <1:40 | | [...] | (missing) | | (unavailable | | [facility] | [place] | | | | ) | | Medical | AVENUE | | | | | | Center | | | | | | | Hospital | | | | + + + + + + + | | 2025-04-29 | | [phone] | (missing) | (missing) | | (unavailable | | [facility] | | | | | ) | | Medical | | | | | | | Center | | | | | | | Hospital | | | | + + + + + + + | | 2025-04-29 | | [place] | (missing) | (missing) | | (unavailable | | [facility] | | | | | ) | | Medical | | | | | | | Center | | | | | | | Hospital | | | | + + + + + + + | | 2025-04-29 | | Lab | (missing) | (missing) | | (unavailable | | [facility] | Director | | | | ) | | Medical | [facility] | | | | | | Center | [facility] | | | | | | Hospital | | | | + + + + + + + | DREW Pat | 2025-04-29 | | Nuclear, | (missing) | Homogeneous | | Ser-Imp | | [facility] | Homogeneous | | pattern is | [...] | (missing) | | (unavailable | | [facility] | performed at | | | | ) | | Medical | [facility] | | | | | | Center | DIAGNOSTICS- | | | | | | Hospital | [place] | | | + + + + + + + | | 2025-04-29 | | [facility] | (missing) | (missing) | | (unavailable | | [facility] | | | | | ) | | Medical | | | | | | | Center | | | | | | | Hospital | | | | + + + + + + + Social History +--------+ + + | date | description | facility | +--------+ + + Vital Signs No information."
--- OUTSIDE RECORDS SUMMARY | 2025-06-10 15:36 | XMS ---
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 E.D. VISIT COUNT (12 MO.) [address] [place] [address] Bran Mina TOTAL 16 NOTE: Visits indicate total known visits. ED/UCC VISIT TRACKING (12 MO.) 06/10/2025 15:[address] [facility] [place] TYPE: Emergency COMPLAINT: - CONFUSION 06/09/2025 18:50 [facility] [place] TYPE: Emergency COMPLAINT: - FALL 06/09/2025 01:[address] [facility] [place] TYPE: Emergency COMPLAINT: - CHEST PAIN 06/03/2025 06:[address] [facility] [place] TYPE: Emergency COMPLAINT: - RT LEG INJURY DIAGNOSES: - Allergy status to analgesic agent - Allergy status to other drugs, medicaments and biological substances - Anxiety disorder, unspecified - Hormone replacement therapy - Hypokalemia - Other prison (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 - Pain in leg, unspecified - Pain in right lower leg 05/30/2025 19:[address] 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 [place] TYPE: Emergency COMPLAINT: - ALTERED [...] encounter - Hormone replacement therapy - Other wood boatbuilder (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 - Other specified problems related to primary support group 04/23/2025 00:56 [facility] [place] TYPE: Emergency COMPLAINT: - POSS FEVER DIAGNOSES: - Allergy status to other drugs, medicaments and biological substances - Anxiety disorder, unspecified - Archibald's palsy - Dehydration - Hormone replacement therapy - Hypokalemia - Other prison (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 - Weakness 04/05/2025 19:15 [facility] [place] TYPE: Emergency COMPLAINT: - CHEST PAIN DIAGNOSES: - Allergy status to analgesic agent - Allergy status to other drugs, medicaments and biological substances - Chest pain, unspecified - Gastro-esophageal reflux disease without esophagitis - Hormone replacement therapy - Other prison (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 - Other pancytopenia 03/28/2025 00:45 [place] [place] TYPE: Emergency COMPLAINT: - WEAKNESS DIAGNOSES: - Allergy status to other drugs, medicaments and biological substances - long term (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 - Pneumonia, unspecified organism - Weakness 03/11/2025 20:[address] [facility] [place] TYPE: Emergency COMPLAINT: - ANXIETY DIAGNOSES: - Allergy status to narcotic agent - Anxiety disorder, unspecified - Chest pain, unspecified - Other prison (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 - Other specified problems related to primary support group - Thrombocytopenia, unspecified 03/10/2025 20:[address] [facility] [place] TYPE: Emergency COMPLAINT: - CHEST PAIN DIAGNOSES: - Allergy status to other antibiotic agents - Chest pain, unspecified - Hormone replacement therapy - half-way (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 - Other prison (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 - Pneumonia, unspecified organism 03/04/2025 01:[address] [facility] [place] [place] TYPE: Emergency COMPLAINT: - KNEE PAIN DIAGNOSES: - Allergy status to other antibiotic agents - Cellulitis of right lower limb - Hormone replacement therapy - Other wood boatbuilder (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 - Pain in left wrist - Pain in right knee - Pain in right wrist - Urinary tract infection, site not specified 12/27/2024 10:46 [facility] TYPE: Emergency DIAGNOSES: - Anemia, unspecified - Embolism and thrombosis of renal vein - Intussusception - Sepsis, unspecified organism - Septic pulmonary embolism without acute cor pulmonale - Severe sepsis without septic shock - Thrombocytopenia, unspecified - Tubulo-interstitial nephritis, not specified as acute or chronic - GI Bleeding 12/27/2024 03:35 [facility] [place] TYPE: Emergency COMPLAINT: - Body Pain DIAGNOSES: - Body Pain 08/31/2024 16:15 [facility] [place] TYPE: Emergency COMPLAINT: - PANIC ATTACH DIAGNOSES: - Allergy status to analgesic agent - Anxiety disorder, unspecified - half-way (current) use of systemic steroids 08/22/2024 23:05 [facility] TYPE: Emergency DIAGNOSES: - Contusion of scalp, initial encounter - Unspecified dementia, unspecified severity, without behavioral disturbance, psychotic disturbance, mood disturbance, and anxiety INPATIENT VISIT TRACKING (12 MO.) [facility]24 [facility] DIAGNOSES: - Anemia, unspecified [...] or chronic - Unspecified severe protein-calorie malnutrition [email or web address]
[2025-06-10 16:58] VITALS: BP 0/0
== END 2025-06-10 16:40 | disposition home or self-care (01) ==
LOC: ED 15:31
DX: F41.9 Anxiety disorder, unspecified (principal); I50.9 Heart failure, unspecified; J44.9 Chronic obstructive pulmonary disease, unspecified; Z88.6 Allergy status to analgesic agent; Z88.8 Allergy status to other drugs, medicaments and biological substances; Z79.890 Hormone replacement therapy; Z79.899 Other long term (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
CPT/HCPCS: 99283

== ENCOUNTER 2025-06-12 02:09 | Emergency (ER) | payer OTHER ==
[~2025-06-12] VITALS: Ht 157.5 cm; Wt 51.0 kg
--- OUTSIDE RECORDS SUMMARY | ~2025-06-12 | XMS | Continuity of Care Document ---
Demographics + + + | Address | [address] | | | [place] [address] | + + + | Preferred Language | Unknown | + + + | Marital Status | Unknown | + + + | Mormonism Affiliation | Unknown | + + + | Race | White | + + + | Ethnic Group | Unknown | + + + Author + + + | Author | [facility] | + + + | Organization | [facility] | + + + | Address | [address] | | | [place] [address] | + + + | Phone | | + + + Care Team Providers + + + + | Care Mitochondrial Disorders Counselor Name | Role | Phone | + [...] (missing) | | Ceruloplasmi | 15:35 | [facility] | | | | | n SerPl-mCnc | | Medical | | | | | | | Center | | | | | | | Hospital | | | | + + + + + + + | Vit B1 | 2025-04-21 | | 70 | nmol/l | (Note) | | Bld-mCnc | 15:07:35 | [facility] | | | Vitamin | | [...] | | | | | | | [place] | | | | | | | [place] [address] | | | | | | | [phone] | | | | | | | Darrius | | | | | | | Josep Schilling | | | | | | | Frame, MD, | | | | | | | PhD | + + + + + + + | | 2025-04-21 | | [phone] | (missing) | (missing) | | (unavailable | 15:07:35 | [facility] | [facility] | | | | ) | | Medical | AVENUE | | | | | | Center | | | | | | | Hospital | | | | + + + + + + + | | 2025-04-21 | | [phone] | (missing) | (missing) | | (unavailable | 15:07:35 | [facility] | | | | | ) | | Medical | | | | | | | Center | | | | | | | Hospital | | | | + + + + + + + | | 2025-04-21 | | [place] | (missing) | (missing) | | (unavailable | 15:07:35 | [facility] | | | | | ) | | Medical | | | | | | | Center | | | | | | | Hospital | | | | + + + + + + + | | 2025-04-21 | | Lab | (missing) | (missing) | | (unavailable | 15:07:35 | [facility] | Director | | | | [...] | | HEp2 subst | 15:07:35 | [facility] | | | first line | | [...] | | | | | | | m/[id number] | | | | | | | [...] (missing) | | (unavailable | 15:07:35 | [facility] | performed at | | | | ) | | Medical | [facility] | | | | | | Center | DIAGNOSTICS- | | | | | | Hospital | [facility] | | | + + + + + + + | | 2025-04-21 | | [facility] | (missing) | (missing) | | (unavailable | 15:07:35 | [facility] | | | | | ) [...] | Reference | | Ser | | [facility] | | | Range <1:40 | | [...] | (missing) | | (unavailable | | [facility] | [facility] | | | | ) | | Medical | AVEN[address] | | | | | | Center | | | | | | | Hospital | | | | + + + + + + + | | 2025-04-29 | | [phone] | (missing) | (missing) | | (unavailable | | [facility] | | | | | ) | | Medical | | | | | | | Center | | | | | | | Hospital | | | | + + + + + + + | | 2025-04-29 | | [place] | (missing) | (missing) | | (unavailable | | [facility] | | | | | ) | | Medical | | | | | | | Center | | | | | | | Hospital | | | | + + + + + + + | | 2025-04-29 | | Lab | (missing) | (missing) | | (unavailable | | [facility] | Director | | | | ) | | Medical | [facility] | | | | | | Center | [facility] | | | | | | Hospital | | | | + + + + + + + | DREW Pat | 2025-04-29 | | Nuclear, | (missing) | Homogeneous | | Ser-Imp | | [facility] | Homogeneous | | pattern is [...] | (missing) | | (unavailable | | [facility] | performed at | | | | ) | | Medical | [facility] | | | | | | Center | DI[facility]STICS- | | | | | | Hospital | [facility] | | | + + + + + + + | | 2025-04-29 | | [facility] | (missing) | (missing) | | (unavailable | | [facility] | | | | | ) | | Medical | | | | | | | Center | | | | | | | Hospital | | | | + + + + + + + Social History +--------+ + + | date | description | facility | +--------+ + + Vital Signs No information."
--- OUTSIDE RECORDS SUMMARY | 2025-06-12 02:14 | XMS ---
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 E.D. VISIT COUNT (12 MO.) [address] [place] [address] Bran Mina TOTAL 17 NOTE: Visits indicate total known visits. ED/UCC VISIT TRACKING (12 MO.) 06/12/2025 02:09 [facility] [place] TYPE: Emergency COMPLAINT: - BACK PAIN 06/10/2025 15:31 [facility] [place] TYPE: Emergency COMPLAINT: - CONFUSION 06/09/2025 18:50 [facility] [place] TYPE: Emergency COMPLAINT: - FALL DIAGNOSES: - Allergy status to narcotic agent - Allergy status to other drugs, medicaments and biological substances - Chronic obstructive pulmonary disease, unspecified - Exposure to other specified factors, initial encounter - Low back pain, unspecified - Other prison (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 - Sprain of other parts of lumbar spine and pelvis, initial encounter - Unspecified dementia, unspecified severity, with other behavioral disturbance 06/09/2025 01:29 [facility] [place] TYPE: Emergency COMPLAINT: - CHEST PAIN DIAGNOSES: - Allergy status to narcotic agent - Allergy status to other drugs, medicaments and biological substances - Chronic obstructive pulmonary disease, unspecified - Other chest pain - Other 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 principal (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 - Shortness of breath 06/03/2025 06:09 [facility] [place] TYPE: Emergency [...] therapy - Other chest pain - Other prison (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 - Solitary pulmonary nodule [...] encounter - Hormone replacement therapy - Other prison [...] esophagitis - Hormone replacement therapy - Other 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 principal (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 - Other pancytopenia 03/28/2025 [...] pain, unspecified - Hormone replacement therapy - intermodal dispatcher (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 - Other 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 principal (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 - Pneumonia, unspecified organism 03/04/2025 01:33 [facility] [place] TYPE: Emergency COMPLAINT: - KNEE PAIN DIAGNOSES: - Allergy status to other antibiotic agents - Cellulitis of right lower limb - Hormone replacement therapy - Other 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 principal (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 - Pain in left wrist - Pain in right knee - Pain in right wrist - Urinary tract infection, site not specified 12/27/2024 10:46 [facility] TYPE: Emergency DIAGNOSES: - Anemia, unspecified - Embolism and thrombosis of renal vein - Intussusception - Sepsis, unspecified organism - Septic pulmonary embolism without acute cor pulmonale - Severe sepsis without septic shock - Thrombocytopenia, unspecified - Tubulo-interstitial nephritis, not specified as acute or chronic - GI Bleeding 12/27/2024 03:35 [facility] [place] TYPE: Emergency COMPLAINT: - Body Pain DIAGNOSES: - Body Pain 08/31/2024 16:15 [facility] [place] [facility] COMPLAINT: - PANIC ATTACH DIAGNOSES: - Allergy status to analgesic agent - Anxiety disorder, unspecified - [facility] (current) use of systemic steroids 08/22/2024 23:05 [facility] TYPE: Emergency DIAGNOSES: - Contusion of scalp, initial encounter - Unspecified dementia, unspecified severity, without behavioral disturbance, psychotic disturbance, mood disturbance, and anxiety INPATIENT VISIT TRACKING (12 MO.) 12/27/2024 10:[address] [facility] TYPE: Internal Medicine DIAGNOSES: - Anemia, [...] or chronic - Unspecified severe protein-calorie malnutrition [email or web address]
[2025-06-12 08:35] VITALS: BP 102/63
[2025-06-12] MEDS ORDERED: BENZTROPINE MESY1 MG PO (08:37)
== END 2025-06-12 08:25 | disposition home or self-care (01) ==
LOC: ED 02:09
DX: M51.369 Other intervertebral disc degeneration, lumbar region without mention of lumbar back pain or lower extremity pain (principal); M17.11 Unilateral primary osteoarthritis, right knee; I50.9 Heart failure, unspecified; J44.9 Chronic obstructive pulmonary disease, unspecified; F03.90 Unspecified dementia, unspecified severity, without behavioral disturbance, psychotic disturbance, mood disturbance, and anxiety; Z88.8 Allergy status to other drugs, medicaments and biological substances; Z79.899 Other long term (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; Z79.890 Hormone replacement therapy
CPT/HCPCS: 72100; 73060; 73560; 99283

== ENCOUNTER 2025-06-15 22:43 | Emergency (ER) | payer OTHER ==
[~2025-06-15] VITALS: Ht 157.5 cm; Wt 51.9 kg
--- OUTSIDE RECORDS SUMMARY | ~2025-06-15 | XMS | Continuity of Care Document ---
Demographics + + + | Address | [address] | | | [place] [address] | + + + | Preferred Language | Unknown | + + + | Marital Status | Unknown | + + + | Zoroastrian Affiliation | Unknown | + + + | Race | White | + + + | Ethnic Group | Unknown | + + + Author + + + | Author | [facility] | + + + | Organization | [facility] | + + + | Address | [address] | | | [place] [address] | + + + | Phone | | + + + Care Team Providers + + + + | Care Computer Game Programmer Name | Role | Phone | + [...] | | | | | | | [place] | | | | | | | [place] [address] | | | | | | | [phone] | | | | | | | Darrius | | | | | | | Josep Schilling | | | | | | | Frame, MD, | | | | | | | PhD | + + + + + + + | | 2025-04-21 | | [id number] | (missing) | (missing) | | (unavailable | 15:07:35 | [facility] | [place] | | | | ) | | Medical | AVENUE | | | | | | Center | | | | | | | Hospital | | | | + + + + + + + | | 2025-04-21 | | [phone] | (missing) | (missing) | | (unavailable [...] | | HEp2 subst | 15:07:35 | [facility] | | | first line | | [...] | | | | | | | m/[id number]/[id number] | | | | | | | [...] | | | | | Hospital | [facility] | | | + + + + + + + | | 2025-04-21 | | [facility] | (missing) | (missing) | | (unavailable [...] | Reference | | Ser | | [facility] | | | Range <1:40 | | [...] | | [facility] | [place] | | | | ) | | Medical | AVENUE | | | | | | Center | | | | | | | Hospital | | | | + + + + + + + | | 2025-04-29 | | [phone] | (missing) | (missing) | | (unavailable | | [facility] | | | | | ) | [...] | | | | | Hospital | [facility] | | | + + + + + + + | | 2025-04-29 | | [facility] | (missing) | (missing) | | (unavailable [...]
[~2025-06-15 22:43] MED LIST changes: +BENZTROPINE MESY1 MG PO
--- OUTSIDE RECORDS SUMMARY | 2025-06-15 22:50 | XMS ---
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 E.D. VISIT COUNT (12 MO.) [address] [place] [address] Bran Mina TOTAL 18 NOTE: Visits indicate total known visits. ED/UCC VISIT TRACKING (12 MO.) 06/15/2025 22:44 [facility] [place] TYPE: Emergency COMPLAINT: - MENTAL HEALTH 06/12/2025 02:09 [facility] [place] TYPE: Emergency COMPLAINT: - BACK PAIN DIAGNOSES: - Allergy status to other drugs, medicaments and biological substances - Chronic obstructive pulmonary disease, unspecified - Dorsalgia, unspecified - Heart failure, unspecified - Hormone replacement therapy - Other intervertebral disc degeneration, lumbar region without mention of lumbar back pain or lower extremity pain - Other fci (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 - Unilateral primary osteoarthritis, right knee - Unspecified dementia, unspecified severity, without behavioral disturbance, psychotic disturbance, mood disturbance, and anxiety 06/10/2025 15:31 [facility] [place] TYPE: Emergency COMPLAINT: - CONFUSION DIAGNOSES: - Allergy status to analgesic agent - Allergy status to other drugs, medicaments and biological substances - Anxiety disorder, unspecified - Chronic obstructive pulmonary disease, unspecified - Heart failure, unspecified - Hormone replacement therapy - Other fci (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 06/09/2025 18:50 [facility] [place] TYPE: Emergency COMPLAINT: - FALL DIAGNOSES: - Allergy status to narcotic agent - Allergy status to other drugs, medicaments and biological substances - Chronic obstructive pulmonary disease, unspecified - Exposure to other specified factors, initial encounter - Low back pain, unspecified - Other fci (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 - Sprain of other [...] unspecified - Other chest pain - Other computer terminal operator (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 - Shortness of breath 06[facility]03/[facility]25 06[facility] [place] [facility] COMPLAINT: - RT LEG INJURY DIAGNOSES: - Allergy status to analgesic agent - Allergy status to other drugs, medicaments and biological substances - Anxiety disorder, unspecified - Hormone replacement therapy - Hypokalemia - Other fci (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 - Pain in leg, unspecified - Pain in right lower leg 05/30/2025 19:47 [facility] [place] TYPE: Emergency COMPLAINT: - CHEST PAIN DIAGNOSES: - Allergy status to analgesic agent - Allergy status to other drugs, medicaments and biological substances - Anxiety disorder, unspecified - Chest pain, unspecified - Heart failure, unspecified - Hormone replacement therapy - Other chest pain - Other computer terminal operator (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 - Solitary pulmonary nodule 05/26/2025 20:55 [facility] [place] TYPE: Emergency COMPLAINT: [...] encounter - Hormone replacement therapy - Other fci (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 - Other specified problems related to primary support group 04/23/2025 00:56 [facility] [place] TYPE: Emergency COMPLAINT: - POSS FEVER DIAGNOSES: - Allergy status to other drugs, medicaments and biological substances - Anxiety disorder, unspecified - Archibald's palsy - Dehydration - Hormone replacement therapy - Hypokalemia - Other computer terminal operator (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 - Weakness 04/05/2025 19:15 [facility] [place] TYPE: Emergency COMPLAINT: - CHEST PAIN DIAGNOSES: - Allergy status to analgesic agent - Allergy status to other drugs, medicaments and biological substances - Chest pain, unspecified - Gastro-esophageal reflux disease without esophagitis - Hormone replacement therapy - Other computer terminal operator (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 - Other pancytopenia 03/28/2025 00:45 [place] [place] TYPE: Emergency COMPLAINT: - WEAKNESS DIAGNOSES: - Allergy status to other drugs, medicaments and biological substances - penitentiary (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 - Pneumonia, unspecified organism - Weakness 03/11/2025 20:18 [facility] [place] TYPE: Emergency COMPLAINT: - ANXIETY DIAGNOSES: - Allergy status to narcotic agent - Anxiety disorder, unspecified - Chest pain, unspecified - Other fci (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 - Other specified problems related to primary support group - Thrombocytopenia, unspecified 03/10/2025 20:53 [facility] [place] TYPE: Emergency COMPLAINT: - CHEST PAIN DIAGNOSES: - Allergy status to other antibiotic agents - Chest pain, unspecified - Hormone replacement therapy - penitentiary (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 - Other fci (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 - Pneumonia, unspecified organism 03/04/2025 01:33 [facility] [place] TYPE: Emergency COMPLAINT: - KNEE PAIN DIAGNOSES: - Allergy status to other antibiotic agents - Cellulitis of right lower limb - Hormone replacement therapy - Other fci (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 - Pain in left wrist - Pain in right knee - Pain in right wrist - Urinary tract infection, site not specified 12/27/2024 10:46 [facility] TYPE: Emergency DIAGNOSES: - Anemia, unspecified - Embolism and thrombosis of renal vein - Intussusception - Sepsis, unspecified organism - Septic pulmonary embolism without acute cor pulmonale - Severe sepsis without septic shock - Thrombocytopenia, unspecified - Tubulo-interstitial nephritis, not specified as acute or chronic - GI Bleeding 12/27/2024 03:35 [facility] [place] TYPE: Emergency COMPLAINT: - Body Pain DIAGNOSES: - Body Pain 08/31/2024 16:15 [facility] [place] TYPE: Emergency COMPLAINT: - PANIC ATTACH DIAGNOSES: - Allergy status to analgesic agent - Anxiety disorder, unspecified - penitentiary (current) use of systemic steroids 08/22/2024 23:05 [facility] TYPE: Emergency DIAGNOSES: - Contusion of scalp, initial encounter - Unspecified dementia, unspecified severity, without behavioral disturbance, psychotic disturbance, mood disturbance, and anxiety INPATIENT VISIT TRACKING (12 MO.) [facility]24 [facility] DIAGNOSES: - [...] or chronic - Unspecified severe protein-calorie malnutrition [email or web address]
[2025-06-15 23:29] LABS: BASOPHILS 0.2 % (0.1-1.2); EOSINOPHILS 1.8 % (0.7-5.8); LYMPHOCYTES 7.4 % (19.3-51.7); MCH 24.9 PG (25.6-32.2); MCHC 31.0 g/dL (32.2-35.5); MCV 80.4 fL (79.4-94.8); MONOCYTES 3.7 % (4.7-12.5); NEUTROPHILS 86.3 % (34.0-71.1); RBC 3.77 M/uL (3.93-5.22)
[2025-06-15 23:30] LABS: BLOOD/HGB, URINE TRACE-I (Negative); KETONE, URINE NEGATIVE (Negative); LEUK ESTERASE, URINE NEGATIVE (negative); NITRITE, URINE NEGATIVE (negative)
[2025-06-15 23:35] LABS: EPITHELIAL CELLS, URINE SQUAMOUS 2+ /lpf (0-1+)
[2025-06-15 23:36] LABS: BACTERIA, URINE RARE /hpf (negative); CASTS, URINE NONE SEEN \\lpf; CRYSTALS, URINE NONE SEEN (0-1+); REFLEX CULTURE, URINE No (No)
[2025-06-15 23:51] LABS: AMPHETAMINES, URINE NEGATIVE (NEGATIVE); BARBITURATES, URINE NEGATIVE (NEGATIVE); BENZODIAZEPINE, URINE NEGATIVE (NEGATIVE); CANNABINOID, URINE NEGATIVE (NEGATIVE); COCAINE, URINE NEGATIVE (NEGATIVE); ECSTASY, URINE NEGATIVE (NEGATIVE); FENTANYL, URINE NEGATIVE (NEGATIVE); METHADONE, URINE NEGATIVE (NEGATIVE); OPIATES, URINE NEGATIVE (NEGATIVE); OXYCODONE, URINE NEGATIVE (NEGATIVE); PHENCYCLIDINE, URINE NEGATIVE (NEGATIVE)
[2025-06-15 23:53] LABS: ALCOHOL, MEDICAL <3 ng/dL (<3); ALT (SGPT) 17 U/L (14-59); AST (SGOT) 26 U/L (15-37); GLOMERULAR FILTRATION RATE,EST 96 mL/min (>60); PROTEIN, TOTAL 8.1 g/dL (6.4-8.2); TSH, 3RD GENERATION 2.111 uIU/mL (0.358-3.740); UREA NITROGEN 17 mg/dL (7-18)
[2025-06-16 02:26] VITALS: BP 136/88
== END 2025-06-16 02:27 | disposition home or self-care (01) ==
LOC: ED 22:43
PROVIDERS: Family Medicine
DX: S66.911A Strain of unspecified muscle, fascia and tendon at wrist and hand level, right hand, initial encounter (principal); F03.93 Unspecified dementia, unspecified severity, with mood disturbance; X58.XXXA Exposure to other specified factors, initial encounter
CPT/HCPCS: 36415; 73130; 80053; 80307; 81001; 84443; 85025; 99284; G0480

== ENCOUNTER 2025-06-20 18:04 | Emergency (ER) | payer OTHER ==
[~2025-06-20] VITALS: Ht 157.5 cm; Wt 55.8 kg
--- NOTE | ~2025-06-20 | EKG ---
[facility] [address] [place], [place] [address] Draft EK completed, results pending confirmation PATIENT NAME: ROBINA NGUYEN Electrocardiogram DATE OF : 67 PHYSICIAN: PRELIMINARY REPORT #: [id number] REPORT IS CONFIDENTIAL AND NOT TO BE RELEASED WITHOUT AUTHORIZATION
--- OUTSIDE RECORDS SUMMARY | ~2025-06-20 | XMS | Continuity of Care Document ---
Demographics + + + | Address | [address] | | | [place] [address] | + + + | Preferred Language | Unknown | + + + | Marital Status | Unknown | + + + | Anabaptism Affiliation | Unknown | + + + | Race | White | + + + | Ethnic Group | Unknown | + + + Author + + + | Author | [facility] | + + + | Organization | [facility] | + + + | Address | [address] | | | [place] [address] | + + + | Phone | | + + + Care Team Providers + + + + | Care Quality Engineer Name | Role | Phone | + [...] (missing) | | Ceruloplasmi | 15:35 | [facility] | | | | | n SerPl-mCnc | | Medical | | | | | | | Center | | | | | | | Hospital | | | | + + + + + + + | Vit B1 | 2025-04-21 | | 70 | nmol/l | (Note) | | Bld-mCnc | 15:07:35 | [facility] | | | Vitamin | | [...] | | | | | | | [place] | | | | | | | [place] [address] | | | | | | | [phone] | | | | | | | Darrius | | | | | | | Josep Schilling | | | | | | | Frame, MD, | | | | | | | PhD | + + + + + + + | | 2025-04-21 | | [id number] | (missing) | (missing) | | (unavailable | 15:07:35 | [facility] | [facility] | | | | ) | | Medical | AVENUE | | | | | | Center | | | | | | | Hospital | | | | + + + + + + + | | 2025-04-21 | | [phone] | (missing) | (missing) | | (unavailable | 15:07:35 | [facility] | | | | | ) | | Medical | | | | | | | Center | | | | | | | Hospital | | | | + + + + + + + | | 2025-04-21 | | [place] | (missing) | (missing) | | (unavailable | 15:07:35 | [facility] | | | | | ) | | Medical | | | | | | | Center | | | | | | | Hospital | | | | + + + + + + + | | 2025-04-21 | | Lab | (missing) | (missing) | | (unavailable | 15:07:35 | [facility] | Director | | | | [...] | | HEp2 subst | 15:07:35 | [facility] | | | first line | | [...] | | | | | | | m/faq/[id number] | | | | | | | [...] (missing) | | (unavailable | 15:07:35 | [facility] | performed at | | | | ) | | Medical | [facility] | | | | | | Center | DIAGNOSTICS- | | | | | | Hospital | [place] | | | + + + + + + + | | 2025-04-21 | | [place] | (missing) | (missing) | | (unavailable | 15:07:35 | [facility] | | | | | ) [...] | Reference | | Ser | | [facility] | | | Range <1:40 | | [...] | (missing) | | (unavailable | | [facility] | [facility] | | | | ) | | Medical | AVENUE | | | | | | Center | | | | | | | Hospital | | | | + + + + + + + | | 2025-04-29 | | [phone] | (missing) | (missing) | | (unavailable | | [facility] | | | | | ) | | Medical | | | | | | | Center | | | | | | | Hospital | | | | + + + + + + + | | 2025-04-29 | | [place] | (missing) | (missing) | | (unavailable | | [facility] | | | | | ) | | Medical | | | | | | | Center | | | | | | | Hospital | | | | + + + + + + + | | 2025-04-29 | | Lab | (missing) | (missing) | | (unavailable | | [facility] | Director | | | | ) | | Medical | [facility] | | | | | | Center | [facility] | | | | | | Hospital | | | | + + + + + + + | DREW Pat | 2025-04-29 | | Nuclear, | (missing) | Homogeneous | | Ser-Imp | | [facility] | Homogeneous | | pattern is [...] | (missing) | | (unavailable | | [facility] | performed at | | | | ) | | Medical | [facility] | | | | | | Center | DIAGNOSTICS- | | | | | | Hospital | [place] | | | + + + + + + + | | 2025-04-29 | | [place] | (missing) | (missing) | | (unavailable | | [facility] | | | | | ) | | Medical | | | | | | | Center | | | | | | | Hospital | | | | + + + + + + + Social History +--------+ + + | date | description | facility | +--------+ + + Vital Signs No information."
--- OUTSIDE RECORDS SUMMARY | 2025-06-20 18:10 | XMS ---
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 E.D. VISIT COUNT (12 MO.) [address] [place] [address] Bran Mina TOTAL 19 NOTE: Visits indicate total known visits. ED/UCC VISIT TRACKING (12 MO.) 06/20/2025 18:04 [facility] [place] TYPE: Emergency COMPLAINT: - ALTERED LOC 06/15/2025 22:44 [facility] [place] TYPE: Emergency COMPLAINT: - MENTAL HEALTH DIAGNOSES: - Exposure to other specified factors, initial encounter - Pain in joints of right hand - Strain of unspecified muscle, fascia and tendon at wrist and hand level, right hand, initial encounter - Unspecified dementia, unspecified severity, with mood disturbance 06/12/2025 02:[address] 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 - Unilateral primary osteoarthritis, right knee - Unspecified dementia, unspecified severity, without behavioral disturbance, psychotic disturbance, mood disturbance, and anxiety 06/10/2025 15:31 [facility] [place] TYPE: Emergency COMPLAINT: - CONFUSION DIAGNOSES: - Allergy status to analgesic agent - Allergy status to other drugs, medicaments and biological substances - Anxiety disorder, unspecified - Chronic obstructive pulmonary disease, unspecified - Heart failure, unspecified - Hormone replacement therapy - 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 06/09/2025 18:50 [facility] [place] [facility] [place] TYPE: Emergency COMPLAINT: - FALL DIAGNOSES: - Allergy status to narcotic agent - Allergy status to other drugs, medicaments and biological substances - Chronic obstructive pulmonary disease, unspecified - Exposure to other specified factors, initial encounter - Low back pain, unspecified - 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 - Sprain of other parts of lumbar spine and pelvis, initial encounter - Unspecified dementia, unspecified severity, with other behavioral disturbance 06/09/2025 01:29 [facility] [place] [facility] TYPE: Emergency COMPLAINT: - CHEST PAIN DIAGNOSES: - Allergy status to narcotic agent - Allergy status to other drugs, medicaments and biological substances - Chronic obstructive pulmonary disease, unspecified - Other chest pain - Other long-term (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 - Shortness of breath 06/03/2025 06:09 [facility] [place] [facility] TYPE: Emergency COMPLAINT: - RT LEG INJURY DIAGNOSES: - Allergy status to analgesic agent - Allergy status to other drugs, medicaments and biological substances - Anxiety disorder, unspecified - Hormone replacement therapy - Hypokalemia - 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 - Pain in leg, unspecified - Pain in right lower leg 05/30/2025 19:47 [facility] [place] [facility] TYPE: Emergency COMPLAINT: - CHEST PAIN DIAGNOSES: - Allergy status to analgesic agent - Allergy status to other drugs, medicaments and biological substances - Anxiety disorder, unspecified - Chest pain, unspecified - Heart failure, unspecified - Hormone replacement therapy - Other chest pain - 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 - Solitary pulmonary [...] encounter - Hormone replacement therapy - 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 - Other specified problems related to primary support group 04/23/2025 00:56 [facility] [place] TYPE: Emergency COMPLAINT: - POSS FEVER DIAGNOSES: - Allergy status to other drugs, medicaments and biological substances - Anxiety disorder, unspecified - Archibald's palsy - Dehydration - Hormone replacement therapy - Hypokalemia - 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 - Weakness 04/05/2025 19:15 [facility] [place] TYPE: Emergency COMPLAINT: - CHEST PAIN DIAGNOSES: - Allergy status to analgesic agent - Allergy status to other drugs, medicaments and biological substances - Chest pain, unspecified - Gastro-esophageal reflux disease without esophagitis - Hormone replacement therapy - Other long-term (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 - Other pancytopenia 03/28/2025 00:45 [facility] [place] TYPE: Emergency COMPLAINT: - WEAKNESS DIAGNOSES: - Allergy status to other drugs, medicaments and biological substances - jail (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 - Pneumonia, unspecified organism - Weakness 03/11/2025 20:[address] [facility] [place] TYPE: Emergency COMPLAINT: - ANXIETY DIAGNOSES: - Allergy status to narcotic agent - Anxiety disorder, unspecified - Chest pain, unspecified - Other long-term (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 - Other specified problems related to primary support group - Thrombocytopenia, unspecified 03/10/2025 20:53 [place] TYPE: Emergency COMPLAINT: - CHEST PAIN DIAGNOSES: - Allergy status to other antibiotic agents - Chest pain, unspecified - Hormone replacement therapy - jail (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 - Other long-term (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 - Pneumonia, unspecified organism 03/04/2025 01:33 [facility] [place] TYPE: Emergency COMPLAINT: - KNEE PAIN DIAGNOSES: - Allergy status to other antibiotic agents - Cellulitis of right lower limb - Hormone replacement therapy - Other long-term (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 - Pain in left wrist - Pain in right knee - Pain in right wrist - Urinary tract infection, site not specified 12/27/2024 10:46 [facility] TYPE: Emergency DIAGNOSES: - Anemia, unspecified - Embolism and thrombosis of renal vein - Intussusception - Sepsis, unspecified organism - Septic pulmonary embolism without acute cor pulmonale - Severe sepsis without septic shock - Thrombocytopenia, unspecified - Tubulo-interstitial nephritis, not specified as acute or chronic - GI Bleeding 12/27/2024 03:35 [facility] [place] TYPE: Emergency COMPLAINT: - Body Pain DIAGNOSES: - Body Pain 08/31/2024 16:15 [facility] TYPE: Emergency COMPLAINT: - PANIC ATTACH DIAGNOSES: - Allergy status to analgesic agent - Anxiety disorder, unspecified - 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 Jan TYPE: Internal Medicine DIAGNOSES: - Anemia, unspecified [...] or chronic - Unspecified severe protein-calorie malnutrition [email or web address]
[2025-06-20 18:15] LABS: BASOPHILS 0.4 % (0.1-1.2); EOSINOPHILS 3.9 % (0.7-5.8); LYMPHOCYTES 13.0 % (19.3-51.7); MCH 25.4 PG (25.6-32.2); MCHC 31.4 g/dL (32.2-35.5); MCV 80.7 fL (79.4-94.8); MONOCYTES 6.7 % (4.7-12.5); NEUTROPHILS 75.6 % (34.0-71.1); RBC 3.47 M/uL (3.93-5.22)
[2025-06-20] MEDS ORDERED: SODIUM CHLORIDE 0.9% 500 ML IV ONE (18:15)
[2025-06-20 18:27] LABS: ALT (SGPT) 11.0 U/L (14-59); AST (SGOT) 13.0 U/L (15-37); GLOMERULAR FILTRATION RATE,EST 100.0 mL/min (>60); PROTEIN, TOTAL 7.1 g/dL (6.4-8.2); UREA NITROGEN 13.0 mg/dL (7-18)
[2025-06-20 18:53] LABS: BLOOD/HGB, URINE NEGATIVE (Negative); KETONE, URINE TRACE (Negative); LEUK ESTERASE, URINE NEGATIVE (negative); NITRITE, URINE NEGATIVE (negative)
[2025-06-20 19:05] LABS: BACTERIA, URINE RARE /hpf (negative); CASTS, URINE HYALINE 1+ \\lpf; CRYSTALS, URINE NONE SEEN (0-1+); EPITHELIAL CELLS, URINE SQUAMOUS 2+ /lpf (0-1+); REFLEX CULTURE, URINE No (No)
[2025-06-20 19:49] VITALS: BP 122/77
== END 2025-06-20 19:33 | disposition home or self-care (01) ==
LOC: ED 18:04
PROVIDERS: Emergency Medicine
DX: R53.1 Weakness (principal); Z88.1 Allergy status to other antibiotic agents; Z88.8 Allergy status to other drugs, medicaments and biological substances; Z79.899 Other long term (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
CPT/HCPCS: 36415; 80053; 81001; 85025; 93005; 93010; 99285; J7040

== ENCOUNTER 2025-06-21 21:20 | Emergency (ER) | payer OTHER ==
[~2025-06-21] VITALS: Ht 157.5 cm; Wt 55.8 kg
--- OUTSIDE RECORDS SUMMARY | ~2025-06-21 | XMS | Continuity of Care Document ---
Demographics + + + | Address | [address] | | | [place] [address] | + + + | Preferred Language | Unknown | + + + | Marital Status | Unknown | + + + | Holiness Affiliation | Unknown | + + + | Race | White | + + + | Ethnic Group | Unknown | + + + Author + + + | Author | [facility] | + + + | Organization | [facility] | + + + | Address | [address] | | | [place] [address] | + + + | Phone | | + + + Care Team Providers + + + + | Care Manager Procurement Name | Role | Phone | + [...] (missing) | | Ceruloplasmi | 15:35 | [facility] | | | | | n SerPl-mCnc | | Medical | | | | | | | Center | | | | | | | Hospital | | | | + + + + + + + | Vit B1 | 2025-04-21 | | 70 | nmol/l | (Note) | | Bld-mCnc | 15:07:35 | [facility] | | | Vitamin | [...] | | | | | | | [place] | | | | | | | [place] [address] | | | | | | | [phone] | | | | | | | Darrius | | | | | | | Josep Schilling | | | | | | | Frame, MD, | | | | | | | PhD | + + + + + + + | | 2025-04-21 | | [id number] | (missing) | (missing) | | (unavailable | 15:07:35 | [facility] | [facility] | | | | ) | | Medical | AVENUE | | | | | | Center | | | | | | | Hospital | | | | + + + + + + + | | 2025-04-21 | | [phone] | (missing) | (missing) | | (unavailable | 15:07:35 | [facility] | | | | | ) | | Medical | | | | | | | Center | | | | | | | Hospital | | | | + + + + + + + | | 2025-04-21 | | [place] | (missing) | (missing) | | (unavailable | 15:07:35 | [facility] | | | | | ) | | Medical | | | | | | | Center | | | | | | | Hospital | | | | + + + + + + + | | 2025-04-21 | | Lab | (missing) | (missing) | | (unavailable | 15:07:35 | [facility] | Director | | | [...] | | HEp2 subst | 15:07:35 | [facility] [place] | | | first line | | [...] | | | | | | | m/faq/[id number] | | | | | | | [...] (missing) | | (unavailable | 15:07:35 | [facility] | performed at | | | | ) | | Medical | [facility] | | | | | | Center | DIAGNOSTICS- | | | | | | Hospital | [place] | | | + + + + + + + | | 2025-04-21 | | [place] | (missing) | (missing) | | (unavailable | 15:07:35 | [facility] | | | | | [...] | Reference | | Ser | | [facility] | | | Range <1:40 | | [...] | (missing) | | (unavailable | | [facility] | [facility] | | | | ) | | Medical | AVENUE | | | | | | Center | | | | | | | Hospital | | | | + + + + + + + | | 2025-04-29 | | [phone] | (missing) | (missing) | | (unavailable | | [facility] | | | | | ) | | Medical | | | | | | | Center | | | | | | | Hospital | | | | + + + + + + + | | 2025-04-29 | | [place] | (missing) | (missing) | | (unavailable | | [facility] | | | | | ) | | Medical | | | | | | | Center | | | | | | | Hospital | | | | + + + + + + + | | 2025-04-29 | | Lab | (missing) | (missing) | | (unavailable | | [facility] | Director | | | | ) | | Medical | [facility] | | | | | | Center | [facility] | | | | | | Hospital | | | | + + + + + + + | [facility] | 2025-04-29 | | Nuclear, | (missing) | Homogeneous | | Ser-Imp | | [facility] | Homogeneous | | pattern [...] | (missing) | | (unavailable | | [facility] | performed at | | | | ) | | Medical | [facility] | | | | | | Center | DIAGNOSTICS- | | | | | | Hospital | [place] | | | + + + + + + + | | 2025-04-29 | | [place] | (missing) | (missing) | | (unavailable | | [facility] | | | | | [...]
--- OUTSIDE RECORDS SUMMARY | 2025-06-21 21:27 | XMS ---
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 E.D. VISIT COUNT (12 MO.) [address] [place] [address] Bran Mina TOTAL 20 NOTE: Visits indicate total known visits. ED/UCC VISIT TRACKING (12 MO.) 06/21/2025 21:21 [facility] [place] TYPE: Emergency COMPLAINT: - ALTERED 06/20/2025 18:04 [facility] [place] TYPE: Emergency COMPLAINT: - ALTERED LOC 06/15/2025 22:44 [place] [facility] [place] TYPE: Emergency COMPLAINT: - MENTAL HEALTH DIAGNOSES: - Exposure to other specified factors, initial encounter - Pain in joints of right hand - Strain of unspecified muscle, fascia and tendon at wrist and hand level, right hand, initial encounter - Unspecified dementia, unspecified severity, with mood disturbance 06/12/2025 02:09 [facility] [place] [facility] TYPE: Emergency COMPLAINT: - BACK PAIN DIAGNOSES: - Allergy status to other drugs, medicaments and biological substances - Chronic obstructive pulmonary disease, unspecified - Dorsalgia, unspecified - Heart failure, unspecified - Hormone replacement therapy - Other intervertebral disc degeneration, lumbar region without mention of lumbar back pain or lower extremity pain - 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 - Unilateral primary osteoarthritis, right knee - Unspecified dementia, unspecified severity, without behavioral disturbance, psychotic disturbance, mood disturbance, and anxiety 06/10/2025 15:31 [place] [facility] [place] TYPE: Emergency COMPLAINT: - CONFUSION DIAGNOSES: - Allergy status to analgesic agent - Allergy status to other drugs, medicaments and biological substances - Anxiety disorder, unspecified - Chronic obstructive pulmonary disease, unspecified - Heart failure, unspecified - Hormone replacement therapy - 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 06/09/2025 18:50 [facility] [place] TYPE: Emergency COMPLAINT: - FALL DIAGNOSES: - Allergy status to narcotic agent - Allergy status to other drugs, medicaments and biological substances - Chronic obstructive pulmonary disease, unspecified - Exposure to other specified factors, initial encounter - Low back pain, unspecified - 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 - Sprain of other [...] unspecified - Other chest pain - Other senior living (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 - Shortness of breath 06/03/2025 06:09 [facility] [place] TYPE: Emergency COMPLAINT: - RT LEG INJURY DIAGNOSES: - Allergy status to analgesic agent - Allergy status to other drugs, medicaments and biological substances - Anxiety disorder, unspecified - Hormone replacement therapy - Hypokalemia - Other senior living (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 - Pain in leg, [...] therapy - Other chest pain - Other senior living (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 - Solitary pulmonary nodule [...] encounter - Hormone replacement therapy - Other senior living (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 - Other specified problems related to primary support group 04/23/2025 00:56 [facility] [place] TYPE: Emergency COMPLAINT: - POSS FEVER DIAGNOSES: - Allergy status to other drugs, medicaments and biological substances - Anxiety disorder, unspecified - Archibald's palsy - Dehydration - Hormone replacement therapy - Hypokalemia - 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 - Weakness 04/05/2025 19:15 [facility] [place] TYPE: Emergency COMPLAINT: - CHEST PAIN DIAGNOSES: - Allergy status to analgesic agent - Allergy status to other drugs, medicaments and biological substances - Chest pain, unspecified - Gastro-esophageal reflux disease without esophagitis - Hormone replacement therapy - Other senior living (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 - Other pancytopenia 03/28/2025 00:45 [facility] [place] TYPE: Emergency COMPLAINT: - WEAKNESS DIAGNOSES: - Allergy status to other drugs, medicaments and biological substances - residential (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 - Pneumonia, unspecified organism - Weakness 03/11/2025 20:18 [facility] [place] TYPE: Emergency COMPLAINT: - ANXIETY DIAGNOSES: - Allergy status to narcotic agent - Anxiety disorder, unspecified - Chest pain, unspecified - Other senior living (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 - Other specified problems related to primary support group - Thrombocytopenia, unspecified 03/10/2025 20:53 [facility] [place] TYPE: Emergency COMPLAINT: - CHEST PAIN DIAGNOSES: - Allergy status to other antibiotic agents - Chest pain, unspecified - Hormone replacement therapy - residential (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 - Other senior living (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 - Pneumonia, unspecified organism 03/04/2025 01:33 [facility] [place] TYPE: Emergency COMPLAINT: - KNEE PAIN DIAGNOSES: - Allergy status to other antibiotic agents - Cellulitis of right lower limb - Hormone replacement therapy - 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 - Pain in left wrist - Pain in right knee - Pain in right wrist - Urinary tract infection, site not specified 12/27/2024 10:46 [facility] TYPE: Emergency DIAGNOSES: - Anemia, [...] analgesic agent - Anxiety disorder, unspecified - residential (current) use of systemic steroids 08/22/2024 23:05 [facility] TYPE: Emergency DIAGNOSES: - Contusion of scalp, initial encounter - Unspecified dementia, unspecified severity, without behavioral disturbance, psychotic disturbance, mood disturbance, and anxiety INPATIENT VISIT TRACKING (12 MO.) 12/27/2024 10:[facility] DIAGNOSES: - [...] or chronic - Unspecified severe protein-calorie malnutrition [email or web address]
[2025-06-21 22:09] LABS: MCH 25.6 PG (25.6-32.2); MCHC 32.1 g/dL (32.2-35.5); MCV 79.9 fL (79.4-94.8); RBC 3.63 M/uL (3.93-5.22)
[2025-06-21 22:10] LABS: BLOOD/HGB, URINE NEGATIVE (Negative); KETONE, URINE NEGATIVE (Negative); LEUK ESTERASE, URINE TRACE (negative); NITRITE, URINE NEGATIVE (negative)
[2025-06-21 22:15] LABS: EPITHELIAL CELLS, URINE SQUAMOUS 1+ /lpf (0-1+)
[2025-06-21 22:16] LABS: BACTERIA, URINE RARE /hpf (negative); CASTS, URINE NONE SEEN \\lpf; CRYSTALS, URINE NONE SEEN (0-1+); REFLEX CULTURE, URINE Yes (No)
[2025-06-21 22:23] LABS: EOSINOPHILS, MANUAL DIFF 6; LYMPHOCYTES, MANUAL DIFF 13; MONOCYTES, MANUAL DIFF 4; NEUTROPHILS, MANUAL DIFF 77
[2025-06-21 22:25] LABS: AMPHETAMINES, URINE NEGATIVE (NEGATIVE); BARBITURATES, URINE NEGATIVE (NEGATIVE); BENZODIAZEPINE, URINE NEGATIVE (NEGATIVE); CANNABINOID, URINE NEGATIVE (NEGATIVE); COCAINE, URINE NEGATIVE (NEGATIVE); ECSTASY, URINE NEGATIVE (NEGATIVE); FENTANYL, URINE NEGATIVE (NEGATIVE); METHADONE, URINE NEGATIVE (NEGATIVE); OPIATES, URINE NEGATIVE (NEGATIVE); OXYCODONE, URINE NEGATIVE (NEGATIVE); PHENCYCLIDINE, URINE NEGATIVE (NEGATIVE)
[2025-06-21 22:27] LABS: ALCOHOL, MEDICAL <3 ng/dL (<3); ALT (SGPT) 13 U/L (14-59); AST (SGOT) 14 U/L (15-37); GLOMERULAR FILTRATION RATE,EST 104 mL/min (>60); PROTEIN, TOTAL 7.3 g/dL (6.4-8.2); UREA NITROGEN 14 mg/dL (7-18)
[2025-06-21] MEDS ORDERED: ASPIRIN 81 MG CHEW PO ONE (22:45)
[2025-06-21] MEDS ORDERED: POTASSIUM CHLORIDE 10 MEQ TABCR PO ONE (22:45)
[2025-06-21] MEDS ORDERED: CALCIUM CHLORIDE 1,000 MG/10 ML SYR IV ONE (22:45)
[2025-06-21 23:02] LABS: CORONAVIRUS COVID-19 AG NEGATIVE (NEGATIVE)
[2025-06-21] MEDS ORDERED: NITROGLYCERIN PACKET TOP ONE (23:30)
[2025-06-21] MEDS ORDERED: POTASSIUM CHLORIDE 10 MEQ/100 ML BAG IV SCH (23:30)
[2025-06-21] MEDS ORDERED: LORazepam 2 MG/ML VIAL IV ONE (23:30)
[2025-06-21 23:40] LABS: CHOLESTEROL/HDL RATIO 3.5; LDL CHOLESTEROL 59.0 mg/dL (< 129); NON-HDL CHOLESTEROL 79.0; VLDL CHOLESTEROL 19.0
[2025-06-22 01:28] LABS: GLOMERULAR FILTRATION RATE,EST 106.0 mL/min (>60); PHOSPHORUS, INORGANIC 4.7 mg/dL (2.5-4.9); UREA NITROGEN 12.0 mg/dL (7-18)
[2025-06-22] MEDS ORDERED: POTASSIUM CHLORIDE 10 MEQ TABCR PO ONE (04:00)
[2025-06-22] MEDS ORDERED: IBUPROFEN 600 MG TAB PO ONE (06:00)
[2025-06-22 09:20] VITALS: BP 136/83
--- NOTE | 2025-06-23 07:40 | EKG ---
[facility] [address] [place], [place] [address] Signed Normal sinus rhythm Nonspecific T wave abnormality Abnormal ECG When compared with ECG of 21-JUN-2025 22:10, (Unconfirmed) Nonspecific T wave abnormality now evident in Lateral leads QT has shortened Confirmed by Mary Jane Washington DO ([id number]) on 06/23/2025 7:40:00 AM Electronically Signed By: MARY JANE WASHINGTON DO 06/23/25 0740 PATIENT NAME: ROBINA NGUYEN Electrocardiogram DATE OF : 67 PHYSICIAN: MARY JANE W[facility] DO REPORT #: [id number] REPORT IS CONFIDENTIAL AND NOT TO BE RELEASED WITHOUT AUTHORIZATION
--- NOTE | 2025-06-23 07:40 | EKG ---
[facility] [address] [place] [address] Signed Normal sinus rhythm Normal ECG When compared with ECG of 21-JUN-2025 23:06, (Unconfirmed) Nonspecific T wave abnormality no longer evident in Lateral leads Confirmed by Mary Jane Washington DO ([id number]) on 06/23/2025 7:40:16 AM Electronically Signed By: MARY JANE [facility] DO 06/23/25 0740 PATIENT NAME: ROBINA NGUYEN Electrocardiogram DATE OF : 67 PHYSICIAN: MARY JANE [facility] DO REPORT #: [id number] REPORT IS CONFIDENTIAL AND NOT TO BE RELEASED WITHOUT AUTHORIZATION
--- NOTE | 2025-06-23 07:40 | EKG ---
[facility] [address] [facility] [place] [address] Signed Normal sinus rhythm Prolonged QT Abnormal ECG When compared with ECG of 20-JUN-2025 18:14, (Unconfirmed) QT has lengthened Confirmed by Mary Jane Washington DO ([id number]) on 06/23/2025 7:39:52 AM Electronically Signed By: MARY JANE WASHINGTON DO 06/23/25 0740 PATIENT NAME: ROBINA NGUYEN Electrocardiogram DATE OF : 67 PHYSICIAN: MARY JANE WASHINGTON DO REPORT #: [id number] REPORT IS CONFIDENTIAL AND NOT TO BE RELEASED WITHOUT AUTHORIZATION
== END 2025-06-22 09:10 | disposition short-term general hospital (02) ==
LOC: ED 21:20
PROVIDERS: Internal Medicine
DX: I21.4 Non-ST elevation (NSTEMI) myocardial infarction (principal); R41.82 Altered mental status, unspecified; I50.9 Heart failure, unspecified; J45.909 Unspecified asthma, uncomplicated; Z88.8 Allergy status to other drugs, medicaments and biological substances; Z79.899 Other long term (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
CPT/HCPCS: 36415; 51701; 70450; 71045; 80048; 80053; 80061; 80307; 81001; 83735; 83880; 84100; 84484; 85025; 87088; 87186; 93005; 93010; 96365; 96366; 96375; 99285-25; A9270; G0480; J2060; J3480

== ENCOUNTER 2025-07-26 17:54 | Emergency (ER) | payer OTHER ==
[~2025-07-26] VITALS: Ht 157.5 cm; Wt 57.0 kg
--- OUTSIDE RECORDS SUMMARY | ~2025-07-26 | XMS | Continuity of Care Document ---
Demographics + + + | Address | [address] | | | [place] [address] | + + + | Preferred Language | Unknown | + + + | Marital Status | Unknown | + + + | Rastafarian Affiliation | Unknown | + + + | Race | White | + + + | Ethnic Group | Unknown | + + + Author + + + | Author | [facility] | + + + | Organization | [facility] | + + + | Address | [address] | | | [place] [address] | + + + | Phone | | + + + Care Team Providers + + + + | Care Purchasing And Fiscal Clerk Name | Role | Phone | + [...] (missing) | | (unavailable | 15:07:35 | [facility] | [place] | | | | ) | | Medical | AVENUE | | | | | | Center | | | | | | | Hospital | | | | + + + + + + + | | 2025-04-21 | | [phone] | (missing) | (missing) | | (unavailable | 15:07:35 | [facility] | | | | | ) | | Medical | | | | | | | Center | | | | | | | Hospital | | | | + + + + + + + | | 2025-04-21 | | [place] | (missing) | (missing) | | (unavailable | [phone] | [facility] | | | | | ) | | Medical | | | | | | | Center | | | | | | | Hospital | | | | + + + + + + + | | 2025-04-21 | | Lab | (missing) | (missing) | | (unavailable | :: | [facility] | Director | | | | ) | | Medical | [facility] | | | | | | Center | [facility] | | | | | | Hospital | | | | + + + + + + + | DREW Ser Ql | 2025-04-21 | | POSITIVE | (missing) | DREW IFA is a | | HEp2 subst | | [facility] | | | first line | | [...] | | | | | | | [id number] | | | | | | | [...] (missing) | | (unavailable | 15:07:35 | [facility] | performed at | | | | ) | | Medical | [facility] | | | | | | Center | DIAGNOSTICS- | | | | | | [facility] | [facility] | | | + + + + + + + | | 2025-04-21 | | NANCI HOWARD | (missing) | (missing) | | (unavailable | 15:07:35 | [facility] | | | | | [...] | Reference | | Ser | | [facility] | | | Range <1:40 | | [...] | (missing) | | (unavailable | | [facility] | [facility] | | | | ) | | Medical | AVENUE | | | | | | Center | | | | | | | Hospital | | | | + + + + + + + | | 2025-04-29 | | [phone] | (missing) | (missing) | | (unavailable | | [facility] | | | | | ) | | Medical | | | | | | | Center | | | | | | | Hospital | | | | + + + + + + + | | 2025-04-29 | | [place] | (missing) | (missing) | | (unavailable | | [facility] | | | | | ) | | Medical | | | | | | | Center | | | | | | | Hospital | | | | + + + + + + + | | 2025-04-29 | | Lab | (missing) | (missing) | | (unavailable | | [facility] | Director | | | | ) | | Medical | [facility] | | | | | | Center | [facility] | | | | | | Hospital | | | | + + + + + + + | DREW Pat | 2025-04-29 | | Nuclear, | (missing) | Homogeneous | | Ser-Imp | | [facility] | Homogeneous | | pattern [...] | (missing) | | (unavailable | | [facility] | performed at | | | | ) | | Medical | [facility] | | | | | | Center | DIAGNOSTICS- | | | | | | Hospital | [place] | | | + + + + + + + | | 2025-04-29 | | [place] | (missing) | (missing) | | (unavailable | | [facility] | | | | | [...]
[~2025-07-26 17:54] MED LIST changes: +METHYLPREDNISOLO4 M1 PO
--- OUTSIDE RECORDS SUMMARY | 2025-07-26 17:56 | XMS ---
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 - 2 Visits in 30 Days CARE PROVIDERS MARKUS FONTANA Community Health Worker 11/25/2023-Current PHONE: [phone] [facility] Pediatrics Current CARE SYSTEM \F\ <UNAVAIL> PHONE: [phone] Sg has no Care Guidelines for this patient. E.D. VISIT COUNT (12 MO.) [address] and Jimmy. TOTAL 23 NOTE: Visits indicate total known visits. ED/UCC VISIT TRACKING (12 MO.) 07/26/2025 17:55 [facility] [place] TYPE: Emergency COMPLAINT: - WEAKNESS 07/10/2025 22:39 [facility] [place] TYPE: Emergency COMPLAINT: - SKIN PROBLEMS DIAGNOSES: - Allergy status to narcotic agent - Allergy status to other drugs, medicaments and biological substances - Arteritis, unspecified - Chest pain, unspecified - Chronic obstructive pulmonary disease, unspecified - Heart failure, unspecified - Other intermediate card tender (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 07/09/2025 23:48 [facility] [place] TYPE: Emergency COMPLAINT: - SKIN PROBLEM 06/21/2025 21:21 [facility] [place] TYPE: Emergency COMPLAINT: - ALTERED DIAGNOSES: - Allergy status to other drugs, medicaments and biological substances - Altered mental status, unspecified - Disorientation, unspecified - Heart failure, unspecified - Non-ST elevation (NSTEMI) myocardial infarction - Other intermediate card tender (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 - Unspecified asthma, uncomplicated 06/20/2025 18:04 [facility] [place] TYPE: Emergency COMPLAINT: - ALTERED LOC DIAGNOSES: - Allergy status to other antibiotic agents - Allergy status to other drugs, medicaments and biological substances - Other intermediate card tender (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 - Unspecified convulsions - Weakness 06/15/2025 22:44 [facility] [place] TYPE: Emergency COMPLAINT: - MENTAL HEALTH DIAGNOSES: - Exposure to other specified factors, initial encounter - Pain in joints of right hand - Strain of unspecified muscle, fascia and tendon at wrist and hand level, right hand, initial encounter - Unspecified dementia, unspecified severity, with mood disturbance [facility] [place] [facility] COMPLAINT: - BACK PAIN DIAGNOSES: - Allergy status to other drugs, medicaments and biological substances - Chronic obstructive pulmonary disease, unspecified - Dorsalgia, unspecified - Heart failure, unspecified - Hormone replacement therapy - Other intervertebral disc degeneration, lumbar region without mention of lumbar back pain or lower extremity pain - Other assisted (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 - Unilateral primary osteoarthritis, right knee - Unspecified dementia, unspecified severity, without behavioral disturbance, psychotic disturbance, mood disturbance, and anxiety 06/10/2025 15:31 [facility] [place] [facility] COMPLAINT: - CONFUSION DIAGNOSES: - Allergy status to analgesic agent - Allergy status to other drugs, medicaments and biological substances - Anxiety disorder, unspecified - Chronic obstructive pulmonary disease, unspecified - Heart failure, unspecified - Hormone replacement therapy - Other assisted (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 06/09/2025 18:50 [facility] [place] TYPE: Emergency COMPLAINT: - FALL DIAGNOSES: - Allergy status to narcotic agent - Allergy status to other drugs, medicaments and biological substances - Chronic obstructive pulmonary disease, unspecified - Exposure to other specified factors, initial encounter - Low back pain, unspecified - Other assisted (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 - Sprain of other [...] unspecified - Other chest pain - Other assisted (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 - Shortness of breath 06/03/2025 06:09 [facility] [place] TYPE: Emergency COMPLAINT: - RT LEG INJURY DIAGNOSES: - Allergy status to analgesic agent - Allergy status to other drugs, medicaments and biological substances - Anxiety disorder, unspecified - Hormone replacement therapy - Hypokalemia - Other assisted (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 - Pain in leg, [...] therapy - Other chest pain - Other assisted (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 - Solitary pulmonary nodule [...] encounter - Hormone replacement therapy - Other assisted (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 - Other specified problems related to primary support group 04/23/2025 00:56 [facility] [place] TYPE: Emergency COMPLAINT: - POSS FEVER DIAGNOSES: - Allergy status to other drugs, medicaments and biological substances - Anxiety disorder, unspecified - Archibald's palsy - Dehydration - Hormone replacement therapy - Hypokalemia - Other assisted (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 - Weakness 04/05/2025 19:15 [facility] [place] TYPE: Emergency COMPLAINT: - CHEST PAIN DIAGNOSES: - Allergy status to analgesic agent - Allergy status to other drugs, medicaments and biological substances - Chest pain, unspecified - Gastro-esophageal reflux disease without esophagitis - Hormone replacement therapy - Other assisted (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 - Other pancytopenia 03/28/2025 00:45 [facility] [place] TYPE: Emergency COMPLAINT: - WEAKNESS DIAGNOSES: - Allergy status to other drugs, medicaments and biological substances - terminal clerk (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 - Pneumonia, unspecified organism - Weakness 03/11/2025 20:18 [facility] [place] TYPE: Emergency COMPLAINT: - ANXIETY DIAGNOSES: - Allergy status to narcotic agent - Anxiety disorder, unspecified - Chest pain, unspecified - Other intermediate card tender (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 - Other specified problems related to primary support group - Thrombocytopenia, unspecified 03/10/2025 20:53 [facility] [place] TYPE: Emergency COMPLAINT: - CHEST PAIN DIAGNOSES: - Allergy status to other antibiotic agents - Chest pain, unspecified - Hormone replacement therapy - snf (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 - Other assisted (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 - Pneumonia, unspecified organism 03/04/2025 01:33 [facility] [place] TYPE: Emergency COMPLAINT: - KNEE PAIN DIAGNOSES: - Allergy status to other antibiotic agents - Cellulitis of right lower limb - Hormone replacement therapy - Other assisted (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 - Pain in left wrist - Pain in right knee - Pain in right wrist - Urinary tract infection, site not specified 12/27/2024 10:46 [facility] TYPE: Emergency DIAGNOSES: - Anemia, unspecified - Embolism and thrombosis of renal vein - Intussusception - Sepsis, unspecified organism - Septic pulmonary embolism without acute cor pulmonale - Severe sepsis without septic shock - Thrombocytopenia, unspecified - Tubulo-interstitial nephritis, not specified as acute or chronic - GI Bleeding Plus 3 More Visits INPATIENT VISIT TRACKING (12 MO.) 06/22/2025 10:30 [facility] TYPE: Medical Surgical DIAGNOSES: - Acute cystitis without hematuria - Non-ST elevation (NSTEMI) myocardial infarction - Other chest pain - Other pancytopenia - Unspecified dementia, unspecified severity, without behavioral disturbance, psychotic disturbance, mood disturbance, and anxiety - Unspecified psychosis not due to a substance or known physiological condition - NSTEMI 12/27/2024 10:46 [facility] TYPE: Internal Medicine DIAGNOSES: - [...] or chronic - Unspecified severe protein-calorie malnutrition [email or web address]
[2025-07-26 19:53] LABS: BASOPHILS 0.7 % (0.1-1.2); EOSINOPHILS 4.1 % (0.7-5.8); LYMPHOCYTES 17.9 % (19.3-51.7); MCH 26.8 PG (25.6-32.2); MCHC 31.5 g/dL (32.2-35.5); MCV 85.2 fL (79.4-94.8); MONOCYTES 9.5 % (4.7-12.5); NEUTROPHILS 67.5 % (34.0-71.1); RBC 4.18 M/uL (3.93-5.22)
[2025-07-26 20:16] LABS: ALT (SGPT) 19.0 U/L (14-59); AST (SGOT) 17.0 U/L (15-37); GLOMERULAR FILTRATION RATE,EST 100.0 mL/min (>60); PROTEIN, TOTAL 8.2 g/dL (6.4-8.2); UREA NITROGEN 22.0 mg/dL (7-18)
[2025-07-26] MEDS ORDERED: LACTATED RINGER'S 1,000 ML IV ONE (21:45)
[2025-07-26] MEDS ORDERED: FAMOTIDINE 20 MG/ 2 ML VIAL IV ONE (22:15)
[2025-07-26 23:20] LABS: BLOOD/HGB, URINE TRACE-I (Negative); KETONE, URINE NEGATIVE (Negative); LEUK ESTERASE, URINE NEGATIVE (negative); NITRITE, URINE NEGATIVE (negative)
[2025-07-26 23:25] LABS: CRYSTALS, URINE NONE SEEN (0-1+); EPITHELIAL CELLS, URINE SQUAMOUS 1+ /lpf (0-1+)
[2025-07-26 23:26] LABS: BACTERIA, URINE RARE /hpf (negative); CASTS, URINE NONE SEEN \\lpf; REFLEX CULTURE, URINE No (No)
[2025-07-26 23:31] LABS: CORONAVIRUS COVID-19 AG NEGATIVE (NEGATIVE)
[2025-07-26 23:33] LABS: AMPHETAMINES, URINE NEGATIVE (NEGATIVE); BARBITURATES, URINE NEGATIVE (NEGATIVE); BENZODIAZEPINE, URINE NEGATIVE (NEGATIVE); CANNABINOID, URINE NEGATIVE (NEGATIVE); COCAINE, URINE NEGATIVE (NEGATIVE); ECSTASY, URINE NEGATIVE (NEGATIVE); FENTANYL, URINE NEGATIVE (NEGATIVE); METHADONE, URINE NEGATIVE (NEGATIVE); OPIATES, URINE NEGATIVE (NEGATIVE); OXYCODONE, URINE NEGATIVE (NEGATIVE); PHENCYCLIDINE, URINE NEGATIVE (NEGATIVE)
[2025-07-27] MEDS ORDERED: ZESTRIL5 MG PO (04:14)
[2025-07-27 06:46] VITALS: BP 145/68
--- NOTE | 2025-07-29 22:06 | EKG ---
[facility] [address] [facility] [place] [address] Signed Normal sinus rhythm Normal ECG When compared with ECG of 22-JUN-2025 00:44, No significant change was found Confirmed by Swapnil Chaudhry MD () on 07/29/2025 10:06:12 PM Electronically Signed By: SWAPNIL CHAUDHRY MD 07/29/252205 PATIENT NAME: ROBINA NGUYEN Electrocardiogram DATE OF : 67 PHYSICIAN: SWAPNIL CHAUDHRY MD REPORT #: [id number] REPORT IS CONFIDENTIAL AND NOT TO BE RELEASED WITHOUT AUTHORIZATION
== END 2025-07-27 06:51 | disposition home or self-care (01) ==
LOC: ED 17:54
PROVIDERS: Internal Medicine
DX: I77.3 Arterial fibromuscular dysplasia (principal); E86.0 Dehydration; R53.1 Weakness; I50.9 Heart failure, unspecified; J44.9 Chronic obstructive pulmonary disease, unspecified; Z79.899 Other long term (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
CPT/HCPCS: 36415; 70450; 70496; 70498; 71045; 80053; 80307; 81001; 83735; 84484; 85025; 93005; 93010; 96374; 99285-25; J7121; Q9967

== ENCOUNTER 2025-08-06 18:07 | Emergency (ER) | payer OTHER ==
[~2025-08-06] VITALS: Ht 157.5 cm; Wt 60.5 kg
[~2025-08-06 18:07] MED LIST changes: +ZESTRIL5 MG PO
--- OUTSIDE RECORDS SUMMARY | 2025-08-06 18:14 | XMS ---
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 E.D. VISIT COUNT (12 MO.) [address] [place] [address] and Jimmy. TOTAL 24 NOTE: Visits indicate total known visits. ED/UCC VISIT TRACKING (12 MO.) 08/06/2025 18:08 [facility] [place] TYPE: Emergency COMPLAINT: - DIZZY 07/26/2025 17:55 [facility] [place] TYPE: Emergency COMPLAINT: - WEAKNESS DIAGNOSES: - Arterial fibromuscular dysplasia - Chronic obstructive pulmonary disease, unspecified - Dehydration - Heart failure, unspecified - Other senior care (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 - Weakness 07/10/2025 22:[address] [facility] [place] TYPE: Emergency COMPLAINT: - SKIN PROBLEMS DIAGNOSES: - Allergy status to narcotic agent - Allergy status to other drugs, medicaments and biological substances - Arteritis, unspecified - Chest pain, unspecified - Chronic obstructive pulmonary disease, unspecified - Heart failure, unspecified - Other intermediate card tender (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 07/09/2025 23:[address] [facility] [place] TYPE: Emergency COMPLAINT: - SKIN PROBLEM 06/21/2025 21:[address] [facility] [place] TYPE: Emergency COMPLAINT: - ALTERED DIAGNOSES: - Allergy status to other drugs, medicaments and biological substances - Altered mental status, unspecified - Disorientation, unspecified - Heart failure, unspecified - Non-ST elevation (NSTEMI) myocardial infarction - Other senior care (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 - Unspecified asthma, uncomplicated 06/20/2025 18:04 [facility] [place] TYPE: Emergency COMPLAINT: - ALTERED LOC DIAGNOSES: - Allergy status to other antibiotic agents - Allergy status to other drugs, medicaments and biological substances - Other senior care (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 - Unspecified convulsions - Weakness 06/15/2025 22:44 [facility] [place] TYPE: Emergency COMPLAINT: - MENTAL HEALTH DIAGNOSES: - Exposure to other specified factors, initial encounter - Pain in joints of right hand - Strain of unspecified muscle, fascia and tendon at wrist and hand level, right hand, initial encounter - Unspecified dementia, unspecified severity, with mood disturbance 06/12/2025 02:09 [facility] [place] TYPE: Emergency COMPLAINT: - BACK PAIN DIAGNOSES: - Allergy status to other drugs, medicaments and biological substances - Chronic obstructive pulmonary disease, unspecified - Dorsalgia, unspecified - Heart failure, unspecified - Hormone replacement therapy - Other intervertebral disc degeneration, lumbar region without mention of lumbar back pain or lower extremity pain - Other senior care (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 - Unilateral primary osteoarthritis, right knee - Unspecified dementia, unspecified severity, without behavioral disturbance, psychotic disturbance, mood disturbance, and anxiety 06/10/2025 15:[address] [facility] [place] TYPE: Emergency COMPLAINT: - CONFUSION DIAGNOSES: - Allergy status to analgesic agent - Allergy status to other drugs, medicaments and biological substances - Anxiety disorder, unspecified - Chronic obstructive pulmonary disease, unspecified - Heart failure, unspecified - Hormone replacement therapy - Other senior care (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 [facility] COMPLAINT: - FALL DIAGNOSES: - Allergy status to narcotic agent - Allergy status to other drugs, medicaments and biological substances - Chronic obstructive pulmonary disease, unspecified - Exposure to other specified factors, initial encounter - Low back pain, unspecified - Other senior care (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 - Sprain of other parts of lumbar spine and pelvis, initial encounter - Unspecified dementia, unspecified severity, with other behavioral disturbance 06/09/2025 01:[address] [facility] [place] TYPE: Emergency COMPLAINT: - CHEST PAIN DIAGNOSES: - Allergy status to narcotic agent - Allergy status to other drugs, medicaments and biological substances - Chronic obstructive pulmonary disease, unspecified - Other chest pain - Other intermediate card tender (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 - Shortness of breath 06/03/2025 06:09 [facility] [place] TYPE: Emergency COMPLAINT: - RT LEG INJURY DIAGNOSES: - Allergy status to analgesic agent - Allergy status to other drugs, medicaments and biological substances - Anxiety disorder, unspecified - Hormone replacement therapy - Hypokalemia - Other senior care (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 - Pain in leg, [...] therapy - Other chest pain - Other intermediate card tender (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 - Solitary pulmonary nodule [...] - Hormone replacement therapy - Other senior care (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 - Other specified problems related to primary support group 04/23/2025 00:[address] [facility] [place] TYPE: Emergency COMPLAINT: - POSS FEVER DIAGNOSES: - Allergy status to other drugs, medicaments and biological substances - Anxiety disorder, unspecified - Archibald's palsy - Dehydration - Hormone replacement therapy - Hypokalemia - Other senior care (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 - Weakness 04/05/2025 19:[address] [facility] [place] TYPE: Emergency COMPLAINT: - CHEST PAIN DIAGNOSES: - Allergy status to analgesic agent - Allergy status to other drugs, medicaments and biological substances - Chest pain, unspecified - Gastro-esophageal reflux disease without esophagitis - Hormone replacement therapy - Other senior care (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 - Other pancytopenia 03/28/2025 00:[address] [facility] [place] TYPE: Emergency COMPLAINT: - WEAKNESS DIAGNOSES: - Allergy status to other drugs, medicaments and biological substances - long-term (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 - Pneumonia, unspecified organism - Weakness 03/11/2025 20:18 [facility] [place] TYPE: Emergency COMPLAINT: - ANXIETY DIAGNOSES: - Allergy status to narcotic agent - Anxiety disorder, unspecified - Chest pain, unspecified - Other senior care (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 - Other specified problems related to primary support group - Thrombocytopenia, unspecified 03/10/2025 20:53 [facility] [place] TYPE: Emergency COMPLAINT: - CHEST PAIN DIAGNOSES: - Allergy status to other antibiotic agents - Chest pain, unspecified - Hormone replacement therapy - long-term (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 - Other intermediate card tender (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 - Pneumonia, unspecified organism 03/04/2025 01:33 [facility] [place] TYPE: Emergency COMPLAINT: - KNEE PAIN DIAGNOSES: - Allergy status to other antibiotic agents - Cellulitis of right lower limb - Hormone replacement therapy - Other intermediate card tender (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 - Pain in left wrist - Pain in right knee - Pain in right wrist - Urinary tract infection, site not specified Plus 4 More Visits INPATIENT VISIT TRACKING (12 MO.) 06/22/2025 10:30 [facility] ([place] TYPE: Medical Surgical DIAGNOSES: - Acute cystitis without hematuria - Non-ST elevation (NSTEMI) myocardial infarction - Other chest pain - Other pancytopenia - Unspecified dementia, unspecified severity, without behavioral disturbance, psychotic disturbance, mood disturbance, and anxiety - Unspecified psychosis not due to a substance or known physiological condition - NSTEMI 12/27/2024 10:46 [facility] TYPE: Internal Medicine DIAGNOSES: - Anemia, [...] or chronic - Unspecified severe protein-calorie malnutrition [email or web address]
[2025-08-06] MEDS ORDERED: ASPIRIN 81 MG CHEW PO ONE (18:30)
[2025-08-06] MEDS ORDERED: NITROGLYCERIN 0.4 MG SUBL SL PRN (18:30)
[2025-08-06 18:49] LABS: BASOPHILS 0.3 % (0.1-1.2); EOSINOPHILS 2.1 % (0.7-5.8); LYMPHOCYTES 14.1 % (19.3-51.7); MCH 26.8 PG (25.6-32.2); MCHC 31.6 g/dL (32.2-35.5); MCV 84.6 fL (79.4-94.8); MONOCYTES 8.1 % (4.7-12.5); NEUTROPHILS 75.1 % (34.0-71.1); RBC 3.70 M/uL (3.93-5.22)
[2025-08-06 19:11] LABS: ALT (SGPT) 13.0 U/L (14-59); AST (SGOT) 11.0 U/L (15-37); GLOMERULAR FILTRATION RATE,EST 92.0 mL/min (>60); PROTEIN, TOTAL 7.5 g/dL (6.4-8.2); UREA NITROGEN 14.0 mg/dL (7-18)
[2025-08-06] MEDS ORDERED: MAGNESIUM OXIDE 400 MG TABLET PO ONE (19:45)
[2025-08-06 21:16] VITALS: BP 115/63
--- NOTE | 2025-08-07 12:08 | EKG ---
[facility] [address] [facility] [place] [address] Signed Normal sinus rhythm Minimal voltage criteria for LVH, may be normal variant ( R in aVL ) Inferior infarct , age undetermined Abnormal ECG When compared with ECG of 26-JUL-2025 19:47, Inferior infarct is now present Confirmed by Mary Jane Washington DO ([id number]) on 08/07/2025 12:07:50 PM Electronically Signed By: MARY JANE WASHINGTON DO 08/07/25 1208 PATIENT NAME: ROBINA NGUYEN Electrocardiogram DATE OF : 67 PHYSICIAN: MARY JANE WASHINGTON DO REPORT #: [id number] REPORT IS CONFIDENTIAL AND NOT TO BE RELEASED WITHOUT AUTHORIZATION
== END 2025-08-06 21:16 | disposition home or self-care (01) ==
LOC: ED 18:07
PROVIDERS: Emergency Medicine
DX: R07.89 Other chest pain (principal); I50.9 Heart failure, unspecified; J44.9 Chronic obstructive pulmonary disease, unspecified; Z88.1 Allergy status to other antibiotic agents; Z88.8 Allergy status to other drugs, medicaments and biological substances
CPT/HCPCS: 36415; 71045; 80053; 83735; 84484; 85025; 93005; 93010; 99285-25; A9270

== ENCOUNTER 2025-08-21 21:21 | Emergency (ER) | payer OTHER ==
[~2025-08-21] VITALS: Ht 157.5 cm; Wt 58.9 kg
[~2025-08-21 21:21] MED LIST changes: +ASPIRIN81 MG; +ATORVASTATIN CA40 MG; +DONEPEZIL HCL10 MG; +ISOSORBIDE MONO30 MG; +KLOR-CON20 MEQ; +MAG-OXIDE400 MG PO; +METOPROLOL TART25 MG; +PANTOPRAZOLE SO40 MG; +QUETIAPINE FUM100 MG; +REXULTI2 MG
--- OUTSIDE RECORDS SUMMARY | 2025-08-21 21:28 | XMS ---
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 E.D. VISIT COUNT (12 MO.) [address] [place] [address] and Jimmy. TOTAL 26 NOTE: Visits indicate total known visits. ED/UCC VISIT TRACKING (12 MO.) 08/21/2025 21:22 [facility] TYPE: Emergency COMPLAINT: - FALL 08/14/2025 04:20 [facility] TYPE: Emergency COMPLAINT: - CHEST PAIN DIAGNOSES: - Allergy status to narcotic agent - Allergy status to other drugs, medicaments and biological substances - Chest pain, unspecified - Chronic obstructive pulmonary disease, unspecified - intermediate (current) use of aspirin - Other termite treater helper (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 08/06/2025 18:08 [facility] TYPE: Emergency COMPLAINT: - DIZZY DIAGNOSES: - Allergy status to other antibiotic agents - Allergy status to other drugs, medicaments and biological substances - Chest pain, unspecified - Chronic obstructive pulmonary disease, unspecified - Heart failure, unspecified - Other chest pain 07/26/2025 17:55 [facility] TYPE: Emergency COMPLAINT: - WEAKNESS DIAGNOSES: - Arterial fibromuscular dysplasia - Chronic obstructive pulmonary disease, unspecified - Dehydration - Heart failure, unspecified - Other termite treater helper (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 - Weakness 07/10/2025 22:39 [facility] TYPE: Emergency COMPLAINT: - SKIN PROBLEMS DIAGNOSES: - Allergy status to narcotic agent - Allergy status to other drugs, medicaments and biological substances - Arteritis, unspecified - Chest pain, unspecified - Chronic obstructive pulmonary disease, unspecified - Heart failure, unspecified - Other termite treater helper (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 07/09/2025 23:48 [facility] TYPE: Emergency COMPLAINT: - SKIN PROBLEM 06/21/2025 21:21 [facility] TYPE: Emergency COMPLAINT: - ALTERED DIAGNOSES: - Allergy status to other drugs, medicaments and biological substances - Altered mental status, unspecified - Disorientation, unspecified - Heart failure, unspecified - Non-ST elevation (NSTEMI) myocardial infarction - Other termite treater helper (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 - Unspecified asthma, uncomplicated 06/20/2025 18:04 [facility] TYPE: Emergency COMPLAINT: - ALTERED LOC DIAGNOSES: - Allergy status to other antibiotic agents - Allergy status to other drugs, medicaments and biological substances - Other termite treater helper (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 - Unspecified convulsions - [...] pain or lower extremity pain - Other jail (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 - Unilateral primary osteoarthritis, [...] unspecified - Hormone replacement therapy - Other termite treater helper (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 06/09/2025 18:50 [facility] TYPE: Emergency COMPLAINT: - FALL DIAGNOSES: - Allergy status to narcotic agent - Allergy status to other drugs, medicaments and biological substances - Chronic obstructive pulmonary disease, unspecified - Exposure to other specified factors, initial encounter - Low back pain, unspecified - Other termite treater helper (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 - Sprain of other [...] unspecified - Other chest pain - Other jail (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 - Shortness of breath 06/03/2025 06:09 [facility] TYPE: Emergency COMPLAINT: - RT LEG INJURY DIAGNOSES: - Allergy status to analgesic agent - Allergy status to other drugs, medicaments and biological substances - Anxiety disorder, unspecified - Hormone replacement therapy - Hypokalemia - Other jail (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 - Pain in leg, [...] therapy - Other chest pain - Other termite treater helper (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 - Solitary pulmonary nodule [...] encounter - Hormone replacement therapy - Other jail (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 - Other specified problems related to primary support group 04/23/2025 00:56 [facility] TYPE: Emergency COMPLAINT: - POSS FEVER DIAGNOSES: - Allergy status to other drugs, medicaments and biological substances - Anxiety disorder, unspecified - Archibald's palsy - Dehydration - Hormone replacement therapy - Hypokalemia - Other jail (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 - Weakness 04/05/2025 19:15 [facility] TYPE: Emergency COMPLAINT: - CHEST PAIN DIAGNOSES: - Allergy status to analgesic agent - Allergy status to other drugs, medicaments and biological substances - Chest pain, unspecified - Gastro-esophageal reflux disease without esophagitis - Hormone replacement therapy - Other jail (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 - Other pancytopenia 03/28/2025 00:45 [facility] TYPE: Emergency COMPLAINT: - WEAKNESS DIAGNOSES: - Allergy status to other drugs, medicaments and biological substances - long term (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 - Pneumonia, unspecified organism - Weakness 03/11/2025 20:18 [facility] TYPE: Emergency COMPLAINT: - ANXIETY DIAGNOSES: - Allergy status to narcotic agent - Anxiety disorder, unspecified - Chest pain, unspecified - Other termite treater helper (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 - Other specified problems related to primary support group - Thrombocytopenia, unspecified Plus 6 More Visits INPATIENT VISIT TRACKING (12 MO.) [facility] DIAGNOSES: - Acute cystitis without hematuria - Non-ST elevation (NSTEMI) myocardial infarction - Other chest pain - Other pancytopenia - Unspecified dementia, unspecified severity, without behavioral disturbance, psychotic disturbance, mood disturbance, and anxiety - Unspecified psychosis not due to a substance or known physiological condition - NSTEMI 12/27/2024 10:46 [facility] [...] or chronic - Unspecified severe protein-calorie malnutrition [email or web address]
[2025-08-21] MEDS ORDERED: IBUPROFEN 800 MG TAB PO ONE (22:00)
== END 2025-08-21 22:05 | disposition home or self-care (01) ==
LOC: ED 21:21
DX: M25.562 Pain in left knee (principal); M25.561 Pain in right knee; M25.522 Pain in left elbow; M25.521 Pain in right elbow; I50.9 Heart failure, unspecified; J44.9 Chronic obstructive pulmonary disease, unspecified; Z79.899 Other long term (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; W18.30XA Fall on same level, unspecified, initial encounter
CPT/HCPCS: 99283; A9270